=== PATIENT | female | born 1975 | race Caucasian/White ===

== ENCOUNTER 2023-01-02 22:20 | Emergency (ER) | payer OTHER, SELFPAY ==
[2023-01-02 22:26] VITALS: BP 179/109; PULSE 85; RESP 16; TEMP 36.8; O2SAT 98; BMI 48.2
--- NOTE | 2023-01-02 23:16 | ED_ITS ---
HPI - General Adult General Chief complaint: Extremity Problem, Nontraumatic Stated complaint: UPPER PAIN Time Seen by Provider: 01/02/23 22:28 Source: patient Mode of arrival: walk-in Limitations: no limitations History of Present Illness HPI narrative: This 47-year-old female who the history of hypertension, diabetes and is obese presents for evaluation of 3 weeks of left-sided scapular pain that radiates down into her shoulder and into her elbow. She has been seen by her family physician who put her on steroids for a period of time and also by the [place] emergency department who did an x-ray and put her on Naprosyn and a muscle relaxant. She denies any neck pain. She has no numbness or tingling. Pain is worse with movement. She states that her family physician thinks that it is musculoskeletal. There is no swelling or pain in the left upper extremity but the pain does radiate from the scapular region into the left elbow. She denies any chest pain or shortness of breath. She denies any dizziness or syncope. She has no abdominal pain or additional back pain. There is no lower extremity pain or swelling. She has no skin rash in this region. She did have some relief of her pain while she was on the steroids prescribed by her PCP but no relief with the naprosyn or flexeril Related Data Home Medications Medication Instructions Recorded Confirmed amlodipine 5 mg tablet 5 mg PO DAILY 01/02/23 01/02/23 cyclobenzaprine 10 mg tablet 10 mg PO Q12H 01/02/23 01/02/23 hydrochlorothiazide 25 mg tablet 25 mg PO DAILY 01/02/23 01/02/23 metformin 850 mg tablet 850 mg PO BID 01/02/23 01/02/23 naproxen 500 mg tablet 500 mg PO Q12H PRN pain 01/02/23 01/02/23 Allergies Allergy/AdvReac Type Severity Reaction Status Date / Time No Known Drug Allergies Allergy Verified 01/02/23 22:30 Review of Systems ROS Status of ROS 10 or more systems reviewed and unremarkable except as noted in history and below PFSH PFSH Social History Smoking status: Former smoker Exam Narrative Exam Narrative: Nurses note and vital signs reviewed and patient is not hypoxic. General: Overweight adult female lying comfortably on the stretcher, she winces in pain with movement, no respiratory distress Skin: Warm, dry, no pallor noted. There is no rash noted. Head: Normocephalic, atraumatic Eye: Normal conjunctiva, no drainage, EOMI. PERRL Ears, Nose, Mouth, and Throat: oral mucosa is moist. Nares patent. Cardiovascular: Regular Rate and Rhythm Respiratory: Patient is in no distress, no accessory muscle use, lungs are clear to auscultation, no wheezing, rales or rhonchi Back: Tenderness to palpation in the left trapezius muscle and scalene muscles, palpable muscle spasm appreciated, no skin rash or skin change noted. GI: Normal bowel sounds, no tenderness to palpation, no masses appreciated. No rebound, guarding, or rigidity noted. Musculoskeletal: Left upper posterior scapular area tenderness to palpation as described above. The left upper extremity is otherwise normal in appearance, full range of motion is appreciated, the patient appears to be more comfortable with her left arm over her head in an effort to stretch out the muscles in her shoulder. There is no midline bony vertebral cervical spine tenderness. There is no swelling tenderness or induration in the upper arm. Radial and brachial pulses are brisk and equal bilaterally. Material Checker strength is intact. Upper and lower extremity strength and sensation is intact and normal. Neurological: A&O x4, normal speech Psychiatric: Cooperative Constitutional Vital Signs, click to edit/add: Last Vital Signs Temp 98.3 F 01/02/23 22:26 Pulse 85 01/02/23 22:26 Resp 16 01/02/23 22:26 BP 150/100 H 01/03/23 01:36 Pulse Ox 98 01/02/23 22:26 O2 Del Method Room Air 01/02/23 22:26 Course Vital Signs Vital signs: Vital Signs Temperature 98.3 F 01/02/23 22:26 Pulse Rate 85 01/02/23 22:26 Respiratory Rate 16 01/02/23 22:26 Blood Pressure 179/109 H 01/02/23 22:26 Pulse Oximetry 98 01/02/23 22:26 Oxygen Delivery Method Room Air 01/02/23 22:26 Temperature 98.3 F 01/02/23 22:26 Pulse Rate 85 01/02/23 22:26 Respiratory Rate 16 01/02/23 22:26 Blood Pressure 150/100 H 01/03/23 01:36 Pulse Oximetry 98 01/02/23 22:26 Oxygen Delivery Method Room Air 01/02/23 22:26 Medical Decision Making MDM Narrative Medical decision making narrative: 47-year-old female presents for evaluation of 3 weeks of left posterior scapular area pain that radiates into the shoulder and down the right arm. She has been seen by her PCP and given a prescription for prednisone as he suspected it was musculoskeletal. She was also seen at [facility] and had an x-ray done and was placed on Naprosyn and Flexeril. She presents with intractable pain in this area. She has full range of motion and is keeping her left arm extended up over her head to stretch it out. She has some mild tenderness in the left posterior scapular region with no skin rash or other notable abnormality. I ordered routine labs to make sure this was not a complicated case including malignancy that may be eroding into her thoracic spine or scapula. She does have a mild elevation in her white count at 13.4. She has normal hemoglobin. Her electrolytes electrolytes were normal with the exception of a potassium. The potassium was placed orally in the emergency department. She is given 60 mg of IM Toradol because she is driving and a Percocet to take at home. She has a normal d-dimer. She has an elevated sedimentation rate and CRP. Noncontrast CT scan of thoracic spine with attention to the left scapula was ordered and is included in the body of this report. It shows some mild degenerative changes with a normal scapula and is otherwise basically normal. This was discussed with the patient verbalizes understanding. She was given a copy of the CT scan to share with her family physician. I did review her OARRS report which is negative for any activity. She was given an IM injection of solumedrol prior to discharge and a prescription for percocet to use. I suggested that she follow up closely with her PCP and possibly seek the attention of a chiropractor, as a manipulation may provede her with some relief. Medical Records Medical records narrative: The [address] [address] [address] Scan Report Signed Patient: PRAVEENA ALEXANDRA MR#: [id number] : 1975 Acct:[id number] Age/Sex: 47 / F ADM Date: 01/02/23 Loc: ER Attending Dr: Ordering Physician: Hanane Jones Date of Service: 01/03/23 Procedure(s): CT thoracic spine wo con Accession Number(s): [id number] cc: Physician,Non-Staff Vignesh~ The [address] [address] Patient Name: PRAVEENA ALEXANDRA MRN: [id number] date: 1975 Sex: F Assigned Patient Location: ER Current Patient Location: ER Accession/Order Number: [id number] Exam Date: 01/03/2023 00:39 Report Date: 01/03/2023 01:10 At the request of: HANANE MARKER Procedure: CT thoracic spine wo con EXAMINATION:CT thoracic spine wo con HISTORY:LUE and scapular pain x 3 weeks COMPARISON:None TECHNIQUE:Multiple thin section transaxial slices were acquired through the thoracic spine without contrast. Coronal and sagittal reconstruction images were reviewed. FINDINGS: There is normal alignment of the thoracic spine without spondylolisthesis. No acute compression fractures are noted. There is mild endplate degenerative disc disease throughout the thoracic spine. There is no bony canal stenosis. The visualized ribs are intact. There are mild dependent changes in the posterior medial lung bases. The paraspinal soft tissues are unremarkable. The visualized left scapula is grossly unremarkable. CT/CT thoracic spine wo con IMPRESSION: Very minimal endplate degenerative disc disease in the thoracic spine. Unremarkable CT scan otherwise. Electronically authenticated by: MADELINE CAST Date: 01/03/2023 01:10 Lab Data Labs: Lab Results 01/02/23 Range/Units 23:25 WBC 13.4 H (4.0-11.0) 10^3/uL RBC 5.23 (4.20-5.40) 10^6/uL Hgb 14.1 (12.0-16.0) g/dL Hct 44.9 (36.0-48.0) % MCV 85.9 (81.0-99.0) fL MCH 27.0 (26.7-34.0) pg MCHC 31.4 (29.9-35.2) g/dL RDW 13.2 (11.0-15.0) % Plt Count 266 (150-450) 10^3/uL MPV 10.5 (9.5-13.5) fL Neut % (Auto) 66.0 (43.0-75.0) % Lymph % (Auto) 25.3 (20.5-60.0) % [place] % (Auto) 5.7 (1.7-12.0) % Eos % (Auto) 1.9 (0.9-7.0) % Baso % (Auto) 0.4 (0.2-2.0) % Neut # (Auto) 8.9 H (1.4-6.5) 10^3/uL Lymph # (Auto) 3.4 (1.2-3.8) 10^3/uL [place] # (Auto) 0.8 (0.3-0.8) 10^3/uL Eos # (Auto) 0.3 (0.0-0.7) 10^3/uL Baso # (Auto) 0.1 (0.0-0.1) 10^3/uL Abs Immat Gran (auto) 0.10 H (0.00-0.03) 10^3/uL Imm/Tot Granulo (auto) 0.7 H (0.0-0.5) % ESR 32 H (<=20) mm/hr D-Dimer <0.19 (<=0.59) mg/L FEU Sodium 138 (136-145) mmol/L Potassium 2.8 L* (3.5-5.1) mmol/L Chloride 101 (98-107) mmol/L Carbon Dioxide 30.7 (21.0-32.0) mmol/L Anion Gap 9.1 BUN 19.0 H (7.0-18.0) mg/dL Creatinine 0.85 (0.55-1.02) mg/dL Est GFR ( Amer) >60 (>=60) Est GFR (Non-Af Amer) >60 (>=60) BUN/Creatinine Ratio 22.4 Glucose 131 H (74-106) mg/dL Calcium 8.8 (8.5-10.1) mg/dL Total Bilirubin 0.8 (0.2-1.0) mg/dL AST 15 (15-37) U/L ALT 20 (14-59) U/L Alkaline Phosphatase 76 (46-116) U/L C-Reactive Protein 2.6 H (<=1.0) mg/dL Total Protein 7.4 (6.4-8.2) g/dL Albumin 3.8 (3.4-5.0) g/dL Globulin 3.6 g/dL Albumin/Globulin Ratio 1.1 Discharge Plan Discharge Chief Complaint: Extremity Problem, Nontraumatic Clinical Impression: Pain of left scapula, Degenerative disc disease, thoracic, Radicular pain in left arm Patient Disposition: Home, Self-Care Time of Disposition Decision: 01:30 Condition: Good Prescriptions / Home Meds: No Action amlodipine 5 mg tablet 5 mg PO DAILY cyclobenzaprine 10 mg tablet 10 mg PO Q12H hydrochlorothiazide 25 mg tablet 25 mg PO DAILY metformin 850 mg tablet 850 mg PO BID naproxen 500 mg tablet 500 mg PO Q12H PRN (Reason: pain) Instructions: Degenerative Disc Disease (ED), Shoulder Pain (ED) Stand Alone Forms: Portal Instructions Referrals: Physician,Non-Staff, MD [Primary Care Provider] - 1 week
[2023-01-02 23:35] LABS: Basophils Absolute Auto 0.1 10^3/uL (0.0-0.1); Basophils Percent Auto 0.4 % (0.2-2.0); Eosinophils Absolute Auto 0.3 10^3/uL (0.0-0.7); Eosinophils Percent Auto 1.9 % (0.9-7.0); Hematocrit 44.9 % (36.0-48.0); Hemoglobin 14.1 g/dL (12.0-16.0); Immature Granulocytes Pct Auto 0.7 % (0.0-0.5); Lymphocytes Absolute Auto 3.4 10^3/uL (1.2-3.8); Lymphocytes Percent Auto 25.3 % (20.5-60.0); Mean Corpuscular HGB Conc 31.4 g/dL (29.9-35.2); Mean Corpuscular Volume 85.9 fL (81.0-99.0); Mean Platelet Volume 10.5 fL (9.5-13.5); Monocytes Absolute Auto 0.8 10^3/uL (0.3-0.8); Monocytes Percent Auto 5.7 % (1.7-12.0); Neutrophils Absolute Auto 8.9 10^3/uL (1.4-6.5); Platelet Count 266 10^3/uL (150-450); Red Blood Count 5.23 10^6/uL (4.20-5.40); Red Cell Distribution Width 13.2 % (11.0-15.0); White Blood Count 13.4 10^3/uL (4.0-11.0)
[2023-01-02 23:41] LABS: Erythrocyte Sedimentation Rate 32 mm/hr (<=20)
[2023-01-02 23:49] LABS: Alanine Aminotransferase 20 U/L (14-59); Albumin Globulin Ratio 1.1; Albumin Level 3.8 g/dL (3.4-5.0); Alkaline Phosphatase 76 U/L (46-116); Anion Gap 9.1; Aspartate Amino Transferase 15 U/L (15-37); BUN Creatinine Ratio 22.4; Bilirubin Total 0.8 mg/dL (0.2-1.0); C Reactive Protein 2.6 mg/dL (<=1.0); Calcium 8.8 mg/dL (8.5-10.1); Carbon Dioxide 30.7 mmol/L (21.0-32.0); Chloride 101 mmol/L (98-107); D Dimer <0.19 mg/L FEU (<=0.59); Estimated GFR (African America >60 (>=60); Estimated GFR (Non-African Ame >60 (>=60); Globulin 3.6 g/dL; Glucose 131 mg/dL (74-106); Sodium 138 mmol/L (136-145); Total Protein 7.4 g/dL (6.4-8.2)
[2023-01-02 23:50] LABS: Potassium 2.8 mmol/L (3.5-5.1)
--- NOTE | 2023-01-03 00:12 | CT_ITS ---
The [address] [address] Patient Name: PRAVEENA ALEXANDRA MRN: [id number] date: 1975 Sex: F Assigned Patient Location: ER Current Patient Location: ER Accession/Order Number: [id number] Exam Date: 01/03/2023 00:39 Report Date: 01/03/2023 01:10 At the request of: PAUL MARKER Procedure: CT thoracic spine wo con EXAMINATION:CT thoracic spine wo con HISTORY:LUE and scapular pain x 3 weeks COMPARISON:None TECHNIQUE:Multiple thin section transaxial slices were acquired through the thoracic spine without contrast. Coronal and sagittal reconstruction images were reviewed. FINDINGS: There is normal alignment of the thoracic spine without spondylolisthesis. No acute compression fractures are noted. There is mild endplate degenerative disc disease throughout the thoracic spine. There is no bony canal stenosis. The visualized ribs are intact. There are mild dependent changes in the posterior medial lung bases. The paraspinal soft tissues are unremarkable. The visualized left scapula is grossly unremarkable. CT/CT thoracic spine wo con IMPRESSION: Very minimal endplate degenerative disc disease in the thoracic spine. Unremarkable CT scan otherwise. Electronically authenticated by: MADELINE CAST Date: 01/03/2023 01:10
[2023-01-03] MEDS: KETOROLAC TROMETHAMINE 60 MG/2 ML VIAL IM (00:50)
[2023-01-03] MEDS: POTASSIUM CHLORIDE 10 MEQ ER TABLET 40 MEQ PO (00:51)
[2023-01-03 01:36] VITALS: BP 150/100
[2023-01-03] MEDS: HYDROCODONE/ACETAMINOPHEN 5-325 MG TABLET 1 TAB PO (01:54)
[2023-01-03] MEDS: ONDANSETRON 4 MG RAPDIS TABLET SL (01:55)
== END 2023-01-03 01:58 | disposition home or self-care (01) ==
PROVIDERS: Emergency Provider Emergency Medicine
DX: M51.14 Intervertebral disc disorders with radiculopathy, thoracic region (principal); M25.512 Pain in left shoulder; I10 Essential (primary) hypertension; E11.9 Type 2 diabetes mellitus without complications; E66.9 Obesity, unspecified; Z79.84 Long term (current) use of oral hypoglycemic drugs; Z79.899 Other long term (current) drug therapy; Z87.891 Personal history of nicotine dependence; Z68.42 Body mass index [BMI] 45.0-49.9, adult
CPT/HCPCS: 36415; 72128; 80053; 85025; 85378; 85652; 86140; 96372; 99285

== ENCOUNTER 2024-01-31 21:15 | Emergency (ER) | payer OTHER, SELFPAY | END 2024-01-31 21:27 | disposition left against medical advice (07) | PROVIDERS: Emergency Provider Internal Medicine | DX: Z53.21 Procedure and treatment not carried out due to patient leaving prior to being seen by health care provider (principal) ==

== ENCOUNTER 2024-02-19 11:34 | Emergency (ER) | payer OTHER, SELFPAY ==
[2024-02-19 11:46] VITALS: BP 184/88; PULSE 75; TEMP 36.7; O2SAT 97; BMI 49.6
[2024-02-19 13:14] LABS: Bilirubin Urine NEGATIVE (NEGATIVE); Blood Urine NEGATIVE (NEGATIVE); Clarity Urine CLEAR (CLEAR); Color Urine YELLOW (YELLOW); Glucose Urine UA NEGATIVE (NEGATIVE); Ketones Urine TRACE mg/dL (NEGATIVE); Leukocyte Esterase Urine NEGATIVE (NEGATIVE); Nitrite Urine NEGATIVE (NEGATIVE); Protein Urine TRACE mg/dL (NEG/TRACE); Specific Gravity Urine >=1.030 (1.005-1.025); Urobilinogen Urine 0.2 EU/dL (0.2-1.0); pH Urine 5.5 (5.0-9.0)
[2024-02-19 13:16] LABS: HCG Qualitative Urine* NEGATIVE (NEGATIVE); Internal Control Within Normal Limits
[2024-02-19 13:17] LABS: Urine Microscopic Indicated NO
--- NOTE | 2024-02-19 13:23 | ED.GENADUL1 ---
HPI HPI - General Adult General Chief complaint: Urogenital-Female Stated complaint: UTI COMPLAINTS Time Seen by Provider: 02/19/24 13:10 Source: patient Mode of arrival: walk-in History of Present Illness HPI narrative: Patient is a 48-year-old female presents to the emergency department for the evaluation of multiple complaints. She states she has had urinary frequency and pressure for the last several weeks. She has not had any fevers, vomiting. She reports mild pressure to the low abdomen. No vaginal bleeding or discharge. She has a history of frequent urinary tract infections and believes this feels similar. No concern for . No medications prior to arrival. She further complains of pain to the left mandible, tooth #16 that has been broken for several weeks. No drainage or swelling. She states she does have a doctor but it cost $100 to get into the office to be seen and she does not have it so she came to the ER. Related Data Home Medications ?Medication ?Instructions ?Recorded ?Confirmed amlodipine 5 mg tablet 5 mg PO DAILY 01/02/23 02/19/24 cyclobenzaprine 10 mg tablet 10 mg PO Q12H 01/02/23 01/02/23 hydrochlorothiazide 25 mg tablet 25 mg PO DAILY 01/02/23 02/19/24 metformin 850 mg tablet 850 mg PO BID 01/02/23 02/19/24 atorvastatin 10 mg tablet 10 mg PO DAILY 02/19/24 02/19/24 Previous Rx's ?Medication ?Instructions ?Recorded amoxicillin 875 mg-potassium 1 tab PO BID #14 tabs 02/19/24 clavulanate 125 mg tablet ibuprofen 600 mg tablet 600 mg PO QID PRN pain #20 tabs 02/19/24 phenazopyridine 200 mg tablet 200 mg PO Q8H 2 days #6 tabs 02/19/24 (Pyridium) Allergies Allergy/AdvReac Type Severity Reaction Status Date / Time No Known Drug Allergies Allergy Verified 01/02/23 22:30 Opioid HPI Opioid Management Most Recent Opioid Data: Last Pain Scale 10 01/03/23 00:50 Review of Systems ROS Constitutional Denies: fever or chills Ears, nose, mouth, and throat Reports: mouth pain; Denies: neck pain or swelling of lips/tongue Cardiovascular Denies: chest pain Respiratory Denies: shortness of breath or cough Gastrointestinal Denies: abdominal pain, nausea, vomiting or diarrhea Genitourinary Reports: urinary frequency, urinary urgency and pelvic pain Musculoskeletal Denies: back pain or neck pain Integumentary/Breast Denies: rash Neurological Denies: numbness in extremities or weakness in extremities Hematologic/Lymphatic Denies: easy bruising or easy bleeding PFSH [facility] Social History Smoking status: Former smoker Little interest or pleasure in doing things: not at all Feeling down, depressed, or hopeless: not at all Exam Narrative Exam Narrative: Gen.: Awake, alert, in no distress Head: Normocephalic, atraumatic ENT: Moist mucous membranes, tooth #16 is broken, root exposed with no abscess noted. No redness or swelling under the tongue. No facial swelling. Respiratory: No respiratory distress Gastrointestinal: Abdomen is soft, nondistended and nontender to palpation Back: No CVA tenderness Extremities: Moves extremities equally Psych: Normal mood and affect Neuro: No focal neuro deficit Skin: Warm, dry, intact Constitutional Vital Signs, click to edit/add: Last Vital Signs Temp 98.1 F 02/19/24 11:46 Pulse 86 02/19/24 13:38 Resp 18 02/19/24 13:38 BP 136/87 02/19/24 13:38 Pulse Ox 98 02/19/24 13:38 O2 Del Method Room Air 02/19/24 11:46 Course Vital Signs Vital signs: Vital Signs Temperature 98.1 F 02/19/24 11:46 Pulse Rate 75 02/19/24 11:46 Respiratory Rate 18 02/19/24 11:46 Blood Pressure 184/88 H 02/19/24 11:46 Pulse Oximetry 97 02/19/24 11:46 Oxygen Delivery Method Room Air 02/19/24 11:46 Temperature 98.1 F 02/19/24 11:46 Pulse Rate 86 02/19/24 13:38 Respiratory Rate 18 02/19/24 13:38 Blood Pressure 136/87 02/19/24 13:38 Pulse Oximetry 98 02/19/24 13:38 Oxygen Delivery Method Room Air 02/19/24 11:46 Medical Decision Making MDM Narrative Medical decision making narrative: Urine specimen with no evidence of UTI, however the patient does take diabetic medications and has had symptoms for 4 weeks, she is placed on Augmentin to cover her dental pain which will also cover cystitis. Pyridium given for symptoms with dental analgesia for pain. Follow-up with dental and PCP and return to the ER if symptoms change or worsen. Patient with a benign exam, no abdominal tenderness or flank tenderness. SUPERVISED APC VISIT, PHYSICIAN ATTESTATION: Based on the medical record the care appears appropriate. ? Medical Records Medical records reviewed: Yes I reviewed the patient's medical records Lab Data Lab results reviewed: Yes I reviewed the patient's lab results Labs: Lab Results 02/19/24 Range/Units 11:49 Urine Color Yellow (YELLOW) Urine Clarity Clear (CLEAR) Urine pH 5.5 (5.0-9.0) Ur Specific [place] >=1.030 A (1.005-1.025) Urine Protein Trace (NEG/TRACE) mg/dL Urine Glucose (UA) Negative (NEGATIVE) mg/dL Urine Ketones Trace A (NEGATIVE) mg/dL Urine Occult Blood Negative (NEGATIVE) Urine Nitrite Negative (NEGATIVE) Urine Bilirubin Negative (NEGATIVE) Urine Urobilinogen 0.2 (0.2-1.0) EU/dL Ur Leukocyte Esterase Negative (NEGATIVE) Urine HCG, Qual Negative (NEGATIVE) Discharge Plan Discharge Chief Complaint: Urogenital-Female Clinical Impression: Urinary frequency, Pain, dental Patient Disposition: Home, Self-Care Time of Disposition Decision: 13:21 Condition: Good Prescriptions / Home Meds: New phenazopyridine [Pyridium] 200 mg tablet 200 mg PO Q8H 2 Days Qty: 6 0RF ibuprofen 600 mg tablet 600 mg PO QID PRN (Reason: pain) Qty: 20 0RF amoxicillin-pot clavulanate 875-125 mg tablet 1 tab PO BID Qty: 14 0RF No Action amlodipine 5 mg tablet 5 mg PO DAILY cyclobenzaprine 10 mg tablet 10 mg PO Q12H hydrochlorothiazide 25 mg tablet 25 mg PO DAILY metformin 850 mg tablet 850 mg PO BID atorvastatin 10 mg tablet 10 mg PO DAILY Print Language: Citizen [place] Instructions: Toothache (ED), Urinary Urgency and Frequency (DC) Referrals: Physician,Non-Staff, MD [Primary Care Provider] - 1 week Discharge Date/Time: 02/19/24 13:39
[2024-02-19] MEDS: BENZOCAINE 30 ML, lidocaine HCL 15 ML MM (13:31)
[2024-02-19 13:38] VITALS: BP 136/87; PULSE 86; O2SAT 98
== END 2024-02-19 13:39 | disposition home or self-care (01) ==
PROVIDERS: Emergency Provider Emergency Medicine
DX: R35.0 Frequency of micturition (principal); K08.89 Other specified disorders of teeth and supporting structures; Z79.84 Long term (current) use of oral hypoglycemic drugs; Z87.440 Personal history of urinary (tract) infections
CPT/HCPCS: 81003; 84703; 99284

== ENCOUNTER 2024-10-10 16:01 | Emergency (ER) | payer SELFPAY ==
[2024-10-10 16:14] VITALS: BP 167/98; PULSE 86; TEMP 36.8; O2SAT 97; BMI 50.7
--- OUTSIDE RECORDS SUMMARY | 2024-10-10 16:24 | XMS_ITS | CCD ---
Author Organization [facility] Care Team Providers Care Branch Library Clerk Name Role Phone [facility] Attending Unavailable [facility] Consulting Unavailable [facility] Admitting Unavailable ECHO ACHARYA Attending Unavailab le JAMIE, ECHO Domínguez Referring Unavailab LANRE Vreas Attending Unavailable ACHARYA, ECHO Domínguez Referring Unavailab ARCELIA Peterson Attending Unavailable JAMIE, ECHO Domínguez Referring Unavailab ARCELIA Peterson Attending Unavailable JAMIE, ECHO Domínguez Referring Unavailab ARCELIA Peterson Attending Unavailable ACHARYAECHO ESPINO Referring Unavailab gloria Kaplan MD [facility] Primary Care Provider Medications Current Medications Medication Drug Class(es) Dates Sig (Normalized) Sig (Original) amLODIPine 5 mg oral tablet (8 sources) Dihydropyridine Calcium Channel Brett Start: 09-30-2024 take 1 tablet by mouth once daily amLODIPine (Norvasc) 5 MG tablet Indications: Essential hypertension (CMS/HCC) TAKE 1 TABLET BY MOUTH DAILY 90 tablet 09/30/2024 Active Start: 09-11-2024 End: 09-30-2024 take 1 tablet by mouth once daily amLODIPine (Norvasc) 5 MG tablet Indications: Essential hypertension (CMS/HCC) Take 1 tablet (5 mg) by mouth Daily 90 tablet 09/11/2024 09/30/2024 Discontinued atorvastatin 10 mg oral tablet (7 sources) HMG-CoA Reductase Inhibitor Start: 09-11-2024 take 1 tablet by mouth once daily atorvastatin (Lipitor) 10 MG tablet Indications: Mixed hyperlipidemia (CMS/HCC) Take 1 tablet (10 mg) by mouth Daily 90 tablet 09/11/2024 Active Start: 12-01-2023 End: 09-11-2024 take 1 tablet by mouth once daily atorvastatin (Lipitor) 10 MG tablet Indications: Mixed hyperlipidemia (CMS/HCC) Take 1 tablet (10 mg) by mouth Daily 90 tablet 3 12/01/2023 09/11/2024 Discontinued (Reorder) hydroCHLOROthiazide 25 mg oral tablet (8 sources) Thiazide Diuretic Start: 09-11-2024 take 1 tablet by mouth in the morning hydroCHLOROthiazide (HYDRODiuril) 25 MG tablet Indications: Essential hypertension (CMS/HCC) Take 1 tablet (25 mg) by mouth in the morning. 90 tablet 09/11/2024 Active Start: 06-24-2024 End: 09-11-2024 take 1 tablet by mouth in the morning hydroCHLOROthiazide (HYDRODiuril) 25 MG tablet Indications: Essential hypertension (CMS/HCC) TAKE 1 TABLET BY MOUTH IN THE MORNING 90 tablet 06/24/2024 09/11/2024 Discontinued (Reorder) Start: 03-11-2024 End: 03-11-2024 take 1 tablet by mouth in the morning hydroCHLOROthiazide (HYDRODiuril) 25 MG tablet Indications: Essential hypertension (CMS/HCC) Take 1 tablet (25 mg) by mouth in the morning. 90 tablet 03/11/2024 Active take 1 tablet by johan th in the morning hydroCHLOROthiazide (HYDRODiuril) 25 MG tablet Take 25 mg by mouth in the morning. Active metFORMIN hydrochloride 850 mg oral tablet (7 sources) Biguanide Start: 02-21-2024 End: 02-21-2024 take 1 tablet by mouth in the morning metFORMIN (Glucophage) 850 MG tablet Indications: Type 2 diabetes mellitus without complication, without long-term current use of insulin Take 1 tablet (850 mg) by mouth in the morning and 1 tablet (850 mg) in the evening. Take with meals. 180 tablet 3 02/21/2024 Active naproxen 375 mg oral tablet (6 sources) Nonsteroidal Anti-inflammatory Drug Start: 12-19-2022 take 1 tablet by mouth once daily in the morning, then take 1 tablet by mouth at mealtime naproxen (Naprosyn) 375 MG tablet TAKE 1 TABLET BY MOUTH EVERY MORNING AND 1 IN THE EVENING WITH MEALS FOR 7 DAYS 12/19/2022 Active omeprazole 10 mg delayed release oral capsule (6 sources) Proton Pump Inhibitor take 2 capsules by mouth every twenty-four hours as needed omeprazole (PriLOSEC) [address] capsule Take 20 mg by mouth Daily as needed Active Problems Active Problems Problem Classification Problem Date Documented Date Episodic/Chronic Diabetes mellitus without complication (7 sources) Diabetes mellitus; Translations: [Type 2 diabetes mellitus without complications] 11-12-2023 Chronic Disorders of lipid metabolism (7 sources) Hypertriglyceridemia; Translations: [Pure hyperglyceridemia] Onset: 11-12-2023 11-12-2023 Chronic Esophageal disorders (6 sources) Gastroesophageal reflux disease; Translations: [Gastro-esophageal reflux disease without esophagitis] Onset: 11-12-2023 11-12-2023 Chronic Essential hypertension (15 sources) Essential hypertension; Translations: [Essential (primary) hypertension] Onset: 02-05-2018 Resolved: 11-12-2023 11-12-2023 Chronic Immunizations and screening for infectious disease (4 sources) Contact with and (suspected) exposure to other viral communicable diseases; Translations: [CONTCT EXPS OTH VIRL COMMUNICABL DZ] Onset: 05-17-2020 Episodic Nutritional deficiencies (6 sources) Vitamin D deficiency; Translations: [Vitamin D deficiency, unspecified] Onset: 11-12-2023 11-12-2023 Chronic Osteoarthritis (6 sources) Arthritis; Translations: [Unspecified osteoarthritis, unspecified site] 11-12-2023 Chronic Other nutritional; endocrine; and metabolic disorders (6 sources) Obesity caused by energy imbalance; Translations: [Other obesity due to excess calories] Onset: 02-05-2018 11-12-2023 Chronic Spondylosis; intervertebral disc disorders; other back problems (6 sources) Cervical arthritis; Translations: [Spondylosis without myelopathy or radiculopathy, cervical region] Onset: 11-21-2023 11-21-2023 Chronic Past or Other Problems Problem Classification Problem Date Documented Da te Episodic/Chronic Spondylosis; intervertebral disc disorders; other back problems (6 sources) Neck pain; Translations: [Cervicalgia] Onset: 11-21-2023 11-21-2023 Episodic Results Test Name Value Interpretation Reference Range Facil ity XR CERVICAL SPINE AP/LAT/FLE X/EXTon 11-12-2023 XR CERVICAL SPINE AP/LAT/FLEX/EXT FINDINGS: Cervical vertebral bodies are preserved in height and are relatively normally aligned. Mild disc space loss with mild posterior and anterior osteophyte formation C5-6. Mild diffuse facet arthropathy. No fracture or focal soft tissue swelling is seen. Prevertebral soft tissues are normal. Flexion and extension maneuvers demonstrate normal alignment, no instability. IMPRESSION: 1. C5-6 arthritis, normal alignment 2. No instability TRANSCRIBED BY: ELECTRONICALLY SIGNED BY: Boni Guardado MD Normal Not Available [facility]on 04-28 Covid-19 PCR NOT DETECTED Normal NOT DETECTED [facility] Comment on above: Result Comment: This test is not yet approved or cleared by the [place] FDA. When there are no FDA-approved or cleared tests available, and other criteria are met, FDA can make tests available under an emergency access mechanism called an Emergency Use Authorization (EUA). The EUA for this test is supported by the [place] of Health and Human Service's (HHS's) declaration that circumstances exist to justify the emergency use of in vitro diagnostics for the detection and/or diagnosis of the virus that causes COVID-19. This EUA will remain in effect (meaning this test can be used) for the duration of the COVID-19 declaration justifying emergency of IVDs, unless it is terminated or revoked by FDA (after which the test may no longer be used). Performed By: #### C [facility] #### [facility] [address] [place] [address] Olivia Thomas EUA Statement SEE BELOW Normal [facility] Comment on above: Result Comment: This test is not yet approved or cleared by the [place] FDA. When there are no FDA-approved or cleared tests available, and other criteria are met, FDA can make tests available under an emergency access mechanism called an Emergency Use Authorization (EUA). The EUA for this test is supported by the [place] of Health and Human Service?s (HHS?s) declaration that circumstances exist to justify the emergency use of in vitro diagnostics for the detection and/or diagnosis of the virus that causes COVID-19. This EUA will remain in effect (meaning this test can be used) for the duration of the COVID-19 declaration justifying emergency of IVDs, unless it is terminated or revoked by FDA (after which the test may no longer be used). When diagnostic testing is negative, the possibility of a false negative should be considered in the context of a patients recent exposures and the presence of clinical signs and symptoms consistent with SARS-CoV-2. Performed By: #### C TB #### [facility] [address] [place], [place] [address] Olivia Thomas Encounters Encounter Date Encounter Type Care Provider Facility Start: 09-30-2024 End: 09-30-2024 Refill Ghazal Collins INFORMATION TECHNOLOGY AUDITOR Work Phone: [facility] Comment on above: Essential hypertensi on (CMS/HCC) Start: 09-11-2024 End: 09-11-2024 Refill Funmi Kaplan MD Work Phone: [facility] Comment on above: Essential hypertensi on (CMS/HCC); Mixed hyperlipidemia (CMS/HCC) Start: 03-11-2024 End: 03-11-2024 Telephone encounter Echo Acharya INFORMATION TECHNOLOGY AUDITOR Work Phone: [facility] Comment on above: Essential hypertensi on (CMS/HCC) (Primary Dx) Start: 02-21-2024 End: 02-21-2024 Orders Only Echo Acharya INFORMATION TECHNOLOGY AUDITOR Work Phone: [facility] Comment on above: Type 2 diabetes sandy itus without complication, without long- term current use of insulin (CMS/HCC) (Primary Dx) Start: 02-11-2024 End: 02-11-2024 Telephone encounter Funmi Kaplan MD Work Phone: [facility] Start: 12-10-2023 End: 12-10-2023 ambulatory ARCELIA BRINK Not Available Start: 12-03-2023 End: 12-03-2023 ambulatory ARCELIA BRINK Not Available Start: 11-23-2023 End: 11-23-2023 ambulatory ARCELIA BRINK Not Available Start: 11-21-2023 End: 11-22-2023 ambulatory LANRE SYED Not Available Start: 11-12-2023 End: 11-12-2023 ambulatory ECHO ACHARYA Not Available Start: 05-17-2020 End: 05-17-2020 Patient encounter procedure [facility] Facility:H1 Procedures Date Procedure Procedure Detail Performing Clinician Start: 08-12-2020 Mammography Funmi broussard MD Work Phone: Plan of Treatment Date Care Activity Detail Author Start: 09-12-2025 Glaucoma screening Diabetes: R etinopathy Screening [facility] Start: 01-26-2025 Influenza vaccination Influenz a Vaccine (Season Ended) [facility] Start: 11-11-2024 Urine screening for protein Diabetes: Urine Protein Screening [facility] Start: 02-12-2024 Hemoglobin A1c measurement Diabetes: Hemoglobin A1C [facility] Start: 01-27-2024 Influenza vaccination Influenza Vacc ine (#1) [facility] Start: 08-12-2021 Screening for malign ant neoplasm of breast Mammogram [facility] Start: 2005 Screening for malign ant neoplasm of cervix [facility] Start: 1996 Screening for malign ant neoplasm of cervix Pap Smear [facility] Start: 1994 Urine screening for protein Diabetes: Urine Protein Screening [facility] Start: 1975 Screening for malign ant neoplasm of colon [facility] Immunizations Immunization Date Immunization Notes Care Provider Fa [facility] 02-17-2017 influenza virus vacc ine, unspecified formulation Funmi Kaplan MD Work Phone: [facility] Payers Date Payer Category Payer Private Health Insurance CHRIST[employer]ICK [id number] 2023 Unknown [facility] [id number] 2023-Present [phone] [place] [id number] 2023 Unknown [id number] 1975 Unknown [id number] 1975 Unknown [id number] [id number] 1975 Unknown [id number] [id number] 1975 Unknown [id number] [id number] 1975 Unknown [id number] 2.9 1975 Unknown [id number] [id number] 1975 Unknown [id number] 1959 Self-pay [id number] Social History Date Type Detail Facility Start: 11-12-2023 Tobacco smoking stat [facility] Ex-smoker [facility] History of tobacco use Current smoker [facility] History of tobacco use Cigarette Smoker [facility] Start: 11-12-2023 Tobacco use and exposure Forme r smokeless tobacco user [facility] Start: 11-12-2023 Alcoholic beverage intake Curr ent drinker of alcohol (finding) [facility] Start: 11-12-2023 History of Social function [facility] Start: 11-12-2023 Tobacco use panel [facility] Start: 11-12-2023 Alcohol Comment once a week [facility] Start: 1975 Sex assigned at Not on file [facility] Clinical Notes 02-11-2024 to 09-11-2024 Telephone Encounter - Eileen Solomon - 09/11/2024 9:30 AM EDTTelephone Encounter - Eileen Solomon - 09/11/2024 9:30 AM Mauricio Acharya NP - 03/11/2024 2:19 PM EDT Note Date & Type Note Facility 09-11-2024 Telephone encount er Note Pt has not been seen since 11/12/2023 as a new patient, and has canceled all appointment since then. She states she has no insurance and cannot afford to come in for an appt. She wants this practice to discount her visits or work with her budget. [facility] 09-11-2024 Miscellaneous Notes Formattin g of this note might be different from the original. Pt has not been seen since 11/12/2023 as a new patient, and has canceled all appointment since then. She states she has no insurance and cannot afford to come in for an appt. She wants this practice to discount her visits or work with her budget. documented in this encounter [facility] 03-11-2024 History of Presen t illness Narrative Prescription sent documented in this encounter [facility] 03-11-2024 Telephone encount er Note Patient called lvm @ 1:52pm needing prescription order hydrochlorothiazide 25mg sent to [facility]. Pt has no refills left on medication. Thank you [facility] 03-11-2024 Miscellaneous Notes Formattin g of this note might be different from the original. Patient called lvm @ 1:52pm needing prescription order hydrochlorothiazide 25mg sent to [facility]. Pt has no refills left on medication. Thank you documented in this encounter [facility] 02-21-2024 History of Presen t illness Narrative Orders sent documented in this encounter [facility] 02-11-2024 Telephone encount er Note Patient called this morning with symptoms of UTI- frequency and pain x 2 weeks. She is self pay and wanted to know how much for office visit and testing. I spoke with Renetta who advised me office call would be around $135.00 plus urine dip - due today and culture testing to [facility] if indicated- this would be extra. Chanelle Pump could see today since Dr. Kaplan is full. I left voice message for patient. [facility] 02-11-2024 Miscellaneous Notes Formattin g of this note might be different from the original. Patient called this morning with symptoms of UTI- frequency and pain x 2 weeks. She is self pay and wanted to know how much for office visit and testing. I spoke with Renetta who advised me office call would be around $135.00 plus urine dip - due today and culture testing to [facility] if indicated- this would be extra. Chanelle Pump could see today since Dr. Kaplan is full. I left voice message for patient. documented in this encounter [facility] Evaluation note Diagnosis Essential hypertension (CMS/HCC)- Primary Unspecified essential hypertension [facility] Diagnosis Type 2 diabetes mellitus without complication, without long-term current use of insulin (CMS/HCC)- Primary [facility] Diagnosis Essential hypertension (CMS/HCC) Unspecified essential hypertension Mixed hyperlipidemia (CMS/HCC) Mixed hyperlipidemia [facility] Diagnosis Essential hypertension (CMS/HCC) Unspecified essential hypertension documented in this encounter [facility] Summary Purpose Family History No Family History Records FoundNo Family History Records Found Advance Directives No Advanced Directives Records FoundNo Advanced Directives Records Found Additional Source Comments INFORMATION SOURCE (unrecogn ized section and content) DATE CREATED AUTHOR 05/27/2020 [facility] DATE CREATED AUTHOR AUTHOR'S ORGANIZ ATION 12/10/2023 [facility] Care Teams (unrecognized sec tion and content) Branch Library Clerk Relationship Specialty Start Date End Date Funmi Kaplan MD [address] [place] [address] PCP - [facility] 11/26/23 Branch Library Clerk Relationship Specialty Start Date End Date Funmi Kaplan MD [address] [place] [address] PCP - [facility] 11/26/23 Branch Library Clerk Relationship Specialty Start Date End Date Funmi Kaplan MD [address] [place] [address] PCP - [facility] 11/26/23 Branch Library Clerk Relationship Specialty Start Date End Date Funmi Kaplan MD [address] [place] [address] PCP - [facility] 11/26/23 Branch Library Clerk Relationship Specialty Start Date End Date Funmi Kaplan MD [address] [place] [address] PCP - [facility] 11/26/23 Branch Library Clerk Relationship Specialty Start Date End Date Funmi Kaplan MD [address] [place] [address] PCP - [facility] 11/26/23 Reason for Visit (unrecogniz ed section and content) Reason Comments Med Refill FOR RECORDS PERTAINING TO PATIENTS WHO ARE OR HAVE BEEN ENROLLED IN A CHEMICAL DEPENDENCY/SUBSTANCEABUSE PROGRAM, SOME INFORMATION MAY BE OMITTED. This clinical summary was aggregated from multiple sources. Caution should be exercised in using it in the provision of clinical care. This summary normalizes information from multiple sources, and as a consequence, information in this document may materially change the coding, format and clinical context of patient data. In addition, data may be omitted in some cases. CLINICAL DECISIONS SHOULD BE BASED ON THE PRIMARY CLINICAL RECORDS. [facility]. provides no warranty or guarantee of the accuracy or completeness of information in this document.
--- NOTE | 2024-10-10 16:33 | ED_ITS ---
Documented by User: ROBERT Ngo 10/10/24 16:44 HPI HPI - General Adult General Chief complaint: Eye Problems Stated complaint: EYE MATTED, HURTING, Time Seen by Provider: 10/10/24 16:04 Source: patient Mode of arrival: walk-in Limitations: no limitations History of Present Illness HPI narrative: 49-year-old female presents to the ER with concerns of eye drainage and waking up with eyes matted. Symptoms started approximately 4 days ago. Patient wears glasses but does not wear contacts with any regularity. She states she recently drove her daughter down to [place], they were frying some chicken in the grease and burning from the cooking irritated her eyes. She used her daughter's friend's eyedrops unsure of the name or what they were which initially helped with some irritation. Patient then woke up with bilateral eye drainage she denies feeling matted. It improves throughout the day and she admits that the redness that she had around her eye has resolved. She then drove home and has been dealing with seasonal allergies mild congestion but no fever and notes that the eyes are still crusted in the morning. She denies any severe itching which she has had before with pinkeye. She denies any loss of vision she denies any eye pain and she denies any foreign body sensation or grinding that may have caused irritation to her eyes. Patient appears nontoxic in no acute distress. She sees eye care center and [place] Related Data Home Medications ?Medication ?Instructions ?Recorded ?Confirmed amlodipine 5 mg tablet 5 mg PO DAILY 01/02/2302/18 cyclobenzaprine 10 mg tablet 10 mg PO Q12H 01/02/23 hydrochlorothiazide 25 mg tablet 25 mg PO DAILY 02/19/24 metformin 850 mg tablet 850 mg PO BID 01/02/2302/18 atorvastatin 10 mg tablet 10 mg PO DAILY 02/19/2401/27 Previous Rx's ?Medication ?Instructions ?Recorded amoxicillin 875 mg-potassium 1 tab PO BID #14 tabs clavulanate 125 mg tablet ibuprofen 600 mg tablet 600 mg PO QID PRN pain #20 t abs 02/19/24 phenazopyridine 200 mg tablet 200 mg PO Q8H 2 days #6 tabs 02/19/24 (Pyridium) sulfacetamide sodium 10 % eye drops 2 drp ophthalmic ( eye) Q4H 7 days 10/10/24 #15 mL Allergies Allergy/AdvReac Type Severity Reaction Status Date / Time No Known Drug Allergies Allergy Verified 10/10/24 16:14 Opioid HPI Opioid Management Most Recent Opioid Data: Last Pain Scale 10 01/03/23, 00:50 Review of Systems ROS Constitutional Denies: fever or chills Eyes Reports: eye discharge and increased production of tears; Denies: change in vision, blurry vision, blind spots, light sensitivity, eye discomfort, floaters, seeing flashes or decreased night vision Ears, nose, mouth, and throat Denies: throat pain, neck pain, throat swelling or difficulty swallowing Cardiovascular Denies: chest pain or palpitations Respiratory Denies: shortness of breath or cough Gastrointestinal Denies: abdominal pain, nausea or vomiting Genitourinary Denies: painful urination or urinary frequency Integumentary/Breast Denies: rash Neurological Denies: headache, numbness in extremities or weakness in extremities Psychiatric Denies: anxiety PFSH PFS Social History Smoking status: Former smoker Little interest or pleasure in doing things: not at all Feeling down, depressed, or hopeless: not at all Exam Narrative Exam Narrative: Nurses's note reviewed and patient is not hypoxic. General: The patient appears well and in no apparent distress. Patient is resting comfortably on cart. Skin: Warm, dry, no pallor noted. Head: Normocephalic, atraumatic Neck: Supple, trachea mid-line, no tenderness, no lymphadenopathy Eye: Normal extraocular motion, pupils were equal round and reactive to light, the patient had no pain with extraocular motion. No conjunctival injection no excessive tearing at this time. Patient states when she awakes in the morning the eyes feel dry and matted shut there is no active discharge noted currently. Painless full extraocular motion noted no periorbital erythema and both eyelids were everted without evidence of foreign body or irritation. Ears, Nose, Mouth, and Throat: oral mucosa is moist Respiratory: Patient is in no distress Neurological: A&O x4, normal speech Psychiatric: Cooperative Constitutional Vital Signs, click to edit/add: Last Vital Signs Temp 98.3 F 10/10/24 16:14 Pulse 86 10/10/24 16:14 Resp 19 10/10/24 16:14 BP 167/98 H 10/10/24 16:14 Pulse Ox 97 10/10/24 16:14 O2 Del Method Room Air 10/10/24 16:14 Course Vital Signs Vital signs: Vital Signs Temperature 98.3 F 10/10/24 16:14 Pulse Rate 86 10/10/24 16:14 Respiratory Rate 19 10/10/24 16:14 Blood Pressure 167/98 H 10/10/24 16:14 Pulse Oximetry 97 10/10/24 16:14 Oxygen Delivery Method Room Air 10/10/24 16:14 Temperature 98.3 F 10/10/24 16:14 Pulse Rate 86 10/10/24 16:14 Respiratory Rate 19 10/10/24 16:14 Blood Pressure 167/98 H 10/10/24 16:14 Pulse Oximetry 97 10/10/24 16:14 Oxygen Delivery Method Room Air 10/10/24 16:14 Medical Decision Making [facility] Narrative Medical decision making narrative: Patient denies foreign body sensation in the eye denies eye pain notes that she has had some dried drainage on her eyelids in the morning. We discussed potential conjunctivitis, she has not worn her contacts recently and will not wear them until symptoms fully resolved. She has glasses at the bedside and her visual acuity is 10/15 bilaterally and individually in each eye. She has no loss of vision. I do not feel she warrants a fluorescein examination with discussion of symptoms and use of someone else's eyedrops in [place] and also driving a significant distance which may have dried her eyes out. She is agreeable to do an antibiotic drop as a precaution pending follow-up to her eye doctor and will try taking an [id number] allergy pill and potentially Naphcon-A as discussed at bedside. Patient will contact her security management specialist on Sunday to discuss follow-up. She may return to the ER if symptoms worsen or new symptoms develop Discharge Plan Discharge Chief Complaint: Eye Problems Clinical Impression: Conjunctivitis Patient Disposition: Home, Self-Care Time of Disposition Decision: 16:35 Condition: Good Prescriptions / Home Meds: New sulfacetamide sodium 10 % drops 2 drp ophthalmic (eye) Q4H 7 Days Qty: 15 0RF No Action amlodipine 5 mg tablet 5 mg PO DAILY cyclobenzaprine 10 mg tablet 10 mg PO Q12H hydrochlorothiazide 25 mg tablet 25 mg PO DAILY metformin 850 mg tablet 850 mg PO BID atorvastatin 10 mg tablet 10 mg PO DAILY phenazopyridine [Pyridium] 200 mg tablet 200 mg PO Q8H 2 Days Qty: 6 0RF ibuprofen 600 mg tablet 600 mg PO QID PRN (Reason: pain) Qty: 20 0RF amoxicillin-pot clavulanate 875-125 mg tablet 1 tab PO BID Qty: 14 0RF Print Language: Belizean Instructions: Conjunctivitis (ED) Additional Instructions: recommend appt with your Eye doctor in 3-5 days if not improving. return to ER fi symptom worsen Recommend Over the counter allergy medication and NAPHCON- A eye drops as directed Dr. Denver Barrios OD or staff: [phone] Documented by User: Umesh Rodriguez MD 10/10/24 16:48 HPI HPI - General Adult General Chief complaint: Eye Problems Stated complaint: EYE MATTED, HURTING, Time Seen by Provider: 10/10/24 16:04 Related Data Home Medications ?Medication ?Instructions ?Recorded ?Confirmed amlodipine 5 mg tablet 5 mg PO DAILY 01/02/2302/18 cyclobenzaprine 10 mg tablet 10 mg PO Q12H 01/02/23 hydrochlorothiazide 25 mg tablet 25 mg PO DAILY 02/19/24 metformin 850 mg tablet 850 mg PO BID 01/02/2302/18 atorvastatin 10 mg tablet 10 mg PO DAILY 02/19/2401/27 Previous Rx's ?Medication ?Instructions ?Recorded amoxicillin 875 mg-potassium 1 tab PO BID #14 tabs clavulanate 125 mg tablet ibuprofen 600 mg tablet 600 mg PO QID PRN pain #20 t abs 02/19/24 phenazopyridine 200 mg tablet 200 mg PO Q8H 2 days #6 tabs 02/19/24 (Pyridium) sulfacetamide sodium 10 % eye drops 2 drp ophthalmic ( eye) Q4H 7 days 10/10/24 #15 mL Allergies Allergy/AdvReac Type Severity Reaction Status Date / Time No Known Drug Allergies Allergy Verified 10/10/24 16:14 Opioid HPI Opioid Management Most Recent Opioid Data: Last Pain Scale 10 01/03/23, 00:50 PFSH PFSH Social History Smoking status: Former smoker Little interest or pleasure in doing things: not at all Feeling down, depressed, or hopeless: not at all Exam Constitutional Vital Signs, click to edit/add: Last Vital Signs Temp 98.3 F 10/10/24 16:14 Pulse 86 10/10/24 16:14 Resp 19 10/10/24 16:14 BP 167/98 H 10/10/24 16:14 Pulse Ox 97 10/10/24 16:14 O2 Del Method Room Air 10/10/24 16:14 Course Vital Signs Vital signs: Vital Signs Temperature 98.3 F 10/10/24 16:14 Pulse Rate 86 10/10/24 16:14 Respiratory Rate 19 10/10/24 16:14 Blood Pressure 167/98 H 10/10/24 16:14 Pulse Oximetry 97 10/10/24 16:14 Oxygen Delivery Method Room Air 10/10/24 16:14 Temperature 98.3 F 10/10/24 16:14 Pulse Rate 86 10/10/24 16:14 Respiratory Rate 19 10/10/24 16:14 Blood Pressure 167/98 H 10/10/24 16:14 Pulse Oximetry 97 10/10/24 16:14 Oxygen Delivery Method Room Air 10/10/24 16:14 Medical Decision Making MDM Narrative Medical decision making narrative: Patient denies foreign body sensation in the eye denies eye pain notes that she has had some dried drainage on her eyelids in the morning. We discussed potential conjunctivitis, she has not worn her contacts recently and will not wear them until symptoms fully resolved. She has glasses at the bedside and her visual acuity is 10/15 bilaterally and individually in each eye. She has no loss of vision. I do not feel she warrants a fluorescein examination with discussion of symptoms and use of someone else's eyedrops in [place] and also driving a significant distance which may have dried her eyes out. She is agreeable to do an antibiotic drop as a precaution pending follow-up to her eye doctor and will try taking an qmmm-pnw-[id number] allergy pill and potentially Naphcon-A as discussed at bedside. Patient will contact her security management specialist on Sunday to discuss follow-up. She may return to the ER if symptoms worsen or new symptoms develop I, Dr Rodriguez, have reviewed the above progress note and course of action in the ER; agree with the above. I have personally gone over history and physical, and discussed disposition and treatment plan with the PA.. Discharge Plan Discharge Chief Complaint: Eye Problems Clinical Impression: Conjunctivitis Patient Disposition: Home, Self-Care Time of Disposition Decision: 16:35 Condition: Good Prescriptions / Home Meds: New sulfacetamide sodium 10 % drops 2 drp ophthalmic (eye) Q4H 7 Days Qty: 15 0RF No Action amlodipine 5 mg tablet 5 mg PO DAILY cyclobenzaprine 10 mg tablet 10 mg PO Q12H hydrochlorothiazide 25 mg tablet 25 mg PO DAILY metformin 850 mg tablet 850 mg PO BID atorvastatin 10 mg tablet 10 mg PO DAILY phenazopyridine [Pyridium] 200 mg tablet 200 mg PO Q8H 2 Days Qty: 6 0RF ibuprofen 600 mg tablet 600 mg PO QID PRN (Reason: pain) Qty: 20 0RF amoxicillin-pot clavulanate 875-125 mg tablet 1 tab PO BID Qty: 14 0RF Print Language: Belizean Instructions: Conjunctivitis (ED) Additional Instructions: recommend appt with your Eye doctor in 3-5 days if not improving. return to ER fi symptom worsen Recommend Over the counter allergy medication and NAPHCON- A eye drops as directed Dr. Denver Barrios OD or staff: [phone]
--- NOTE | 2024-10-10 16:36 | PC.NURSE ---
Visual acuity with glasses as follows: Bilateral: 10/15, Right: 10/15, Left: 10/15.
[2024-10-10] MEDS: SULFACETAMIDE SODIUM 10% OP 300 DROP/15 ML BOTTLE OP (16:49)
== END 2024-10-10 16:55 | disposition home or self-care (01) ==
PROVIDERS: Emergency Provider Emergency Medicine; PCP Pediatrics
DX: H10.9 Unspecified conjunctivitis (principal); Z87.891 Personal history of nicotine dependence
CPT/HCPCS: 99284

== ENCOUNTER 2025-04-01 11:00 | Outpatient (OUT) | payer MEDICAID, SELFPAY ==
--- OUTSIDE RECORDS SUMMARY | 2021-01-24 07:18 | XMS_ITS | Continuity of Care Document ---
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 [address] [place], [place], [address] [place] [address] , [place]. [phone] Formerly [facility] , [address] [place], [place], [address] [place] [address], tel:[phone] [facility] Dept Immunization No Information 1 Mike Garcia. [address] [place], [place], [id number] , [place]. tel:[phone] Formerly [facility] , [address] [place], [place], [id number], [place] tel:[phone] [facility] Dept Immunization No Information 1 Mike Garcia. [address] [place], [place], [id number] , [place]. tel:[phone] Formerly [facility] , [address] [place], [place], [address] [place] [address], [place] tel:[phone] [facility] Dept Immunization No Information Mike Garcia. [address], [place], [place], [id number] , . tel:[phone] Family History Family Member Type Diagnosis Age At Onset No Information Immunizations Vaccine Date Status Comments COVID-19, mRNA, LNP-S, PF, 3 0 mcg/0.3 mL dose administered Note: TPV40 ; Source : Other Registry Pfizer BioNTBeryl [employer] administered Note: TPV40 ; Source: New Immunization Record influenza, injectable, quadrivalent, preservative free administered Source: Other [place] calix Influenza, seasonal, injectable, preservative free administered Source: Ot her Registry Tdap administered Source: Other R egistry Payers Payer name Insurance type Covered alliance party ID Authoriza tion(s) No Information Social History Type Description Quantity Date Captured Comments Sex Female Smoking Status No Information Chief Complaint And Reason For Visit No Information Reason For Referral Reason For Referral No Information History Of Present Illness Encounter Date Complaint History Of Prese nt Illness No Information Functional Status Date Functional Assessmen t No Information Instructions Date Instruction Additional Infor mation No Information Assessments Type Assessment Date No Information Patient Care Teams Name Effective Dates (start - stop) Status Members No Information
--- OUTSIDE RECORDS SUMMARY | 2025-01-19 10:45 | XMS_ITS ---
Author Organization [facility] vice Address [address] [place] [address] [phone] Care Team Providers Care Aircraft Engineer Name Role Phone Fiona Hwang Primary Care Provider Fay Whyte Unavailable [phone] REASON FOR VISIT Wellness Social History Sex Assigned At : Social History Observation Description Sex Assigned At Female Encounters Encounter Location Date Provider Diagnosis [address] [phone] 01/19/2025 Fay Whyte Plan Of Treatment Next Appt Details Provider Name:Sofiya dickerson, 04/22/2025 10:15:00 AM, [address] [place] [address], [id number], Provider Name:Fay dickerson, 05/25/2025 01:15:00 PM, [address] [place] [address], [id number], Provider Name:Sofiya dickerson, 06/01/2025 01:45:00 PM, [address] [place] [address], [id number], Progress Notes * Betina RAMESHDOB: 6 (49 yo F)Acc No.[id number]:01/19/2025 Patient:Betina SUAZO :?Fay Whyte APRN, CONSTRUCTION SALES MANAGER-CDOB:1975???Age: 49 Y???Sex:FemaleDate:01/19/2025Phone:[phone]:[address] [facility] [address], [facility]Igq:Fiona Hwang Subjective: * Chief Complaints: * 1 . Wellness. * Medical History: Objective: * Vitals: Assessment: Plan: * Treatment: * Billing Information: * Visit Code: * Procedure Codes: * Electronic signature of MICHELA Shea on 04/02/2025 at 12:37 PM EST Sign off status: Pending * Provider: Catrachita Whyte APRN, FNP-C Date: 0 01/19/2025 Generated for Printing/Faxing/eTransmitting on:?04/02/2025 12:37 PM EST
--- OUTSIDE RECORDS SUMMARY | 2025-02-02 07:45 | XMS_ITS ---
Author Organization [facility] vices Address [address] [place] [address] [id number] Care Team Providers Care Tape Transferrer Name Role Phone Fiona Hwang Primary Care Provider [phone] Fay Whyte Unavailable [phone] REASON FOR VISIT 2w htn, labs Social History Sex Assigned At : Social History Observation Description Sex Assigned At Female Encounters Encounter Location Date Provider Diagnosis [address] [phone] 02/02/2025 Fay Whyte Plan Of Treatment Next Appt Details Provider Name:Sofiya dickerson, 04/22/2025 10:15:00 AM, [address] [place] [address], [phone], Provider Name:Fay dickerson, 05/25/2025 01:15:00 PM, [address] [place] [address], [phone], Provider Name:Sofiya dickerson, 06/01/2025 01:45:00 PM, [address] [place] [address], [id number], Progress Notes * Betina RAMESHDOB: [birth year] (49 yo F)Acc No.[id number]:02/02/2025 Medical Note Patient: Betina LAL :?Fay Whyte APRN, HAND CANDLE DIPPER-CDOB:1975???Age: 49 Y???Sex:FemaleDate:02/02/2025Phone:[phone]:[address] [facility] [address], [place], [facility]Zmz:Fiona Hwang Subjective: * Chief Complaints: * 1 . 2w htn, labs. * Medical History: Objective: * Vitals: Assessment: Plan: * Treatment: * Billing Information: * Visit Code: * Procedure Codes: * Electronic signature of MICHELA Shea on 04/02/2025 at 12:37 PM EST Sign off status: Pending * Provider: Catrachita Whyte APRN, FNP-C Date: 0 02/02/2025 Generated for Printing/Faxing/eTransmitting on:?04/02/2025 12:37 PM EST
--- OUTSIDE RECORDS SUMMARY | 2025-02-24 08:30 | XMS_ITS ---
Author Organization [facility] vice Address [address] [place] [address] [phone] Care Team Providers Care Quarter Supervisor Name Role Phone Fiona Hwang Primary Care Provider Fay Whyte Unavailable [phone] Sofiya Doan Unavailable [phone] REASON FOR VISIT Wellness Social History Sex Assigned At : Social History Observation Description Sex Assigned At Female Encounters Encounter Location Date Provider Diagnosis [address] [phone] 02/24/2025 Sofiya Doan Plan Of Treatment Next Appt Details Provider Name:Sofiya dickerson, 04/22/2025 10:15:00 AM, [address] [place] [address], [phone], Provider Name:Fay dickerson, 05/25/2025 01:15:00 PM, [address] [place] [address], [phone], Provider Name:Sofiya dickerson, 06/01/2025 01:45:00 PM, [address] [place] [address], [id number], Progress Notes * Betina RAMESHDOB: 6 (49 yo F)Acc No.[id number]:02/24/2025 Medical Note Patient: Betina LAL :?SOFIYA DOAN-CNPDOB:1975???Age:49 Y ???Sex:FemaleDate:02/24/2025Phone:[phone]:[address] [facility], [address] [facility]Xec:Fiona Hwang Subjective: * Chief Complaints: * 1 . Wellness. * Medical History: Objective: * Vitals: Assessment: Plan: * Treatment: * Billing Information: * Visit Code: * Procedure Codes: * Electronic signature of JOHN Villafana on 04/02/2025 at 12:38 PM ESTSign off status: Pending * Provider: Radha DOAN-CURLY Date: 0 02/24/2025 Generated for Printing/Faxing/eTransmitting on:?04/02/2025 12:38 PM EST
--- OUTSIDE RECORDS SUMMARY | 2025-03-02 09:45 | XMS_ITS ---
Author Organization [facility] vice Address [address] [place] [address] [phone] Care Team Providers Care Rounder Hand Name Role Phone Fiona Hwang Primary Care Provider Fay Whyte Unavailable [phone] REASON FOR VISIT sleep apnea Social History Sex Assigned At : Social History Observation Description Sex Assigned At Female Encounters Encounter Location Date Provider Diagnosis [address] [phone] 03/02/2025 Fay Whyte Plan Of Treatment Next Appt Details Provider Name:Sofiya dickerson, 04/22/2025 10:15:00 AM, [address] [place] [address], [phone], Provider Name:Fay dickerson, 05/25/2025 01:15:00 PM, [address] [place] [address], [phone], Provider Name:Sofiya dickerson, 06/01/2025 01:45:00 PM, [address] [place] [address], [phone], Progress Notes * Betina RAMESHDOB: [birth year] (49 yo F)Acc No.[id number]:03/02/2025 Medical Note Patient: Betina LAL :?Fay Whyte APRN, KNITTING TEACHER-CDOB:1975???Age: 49 Y???Sex:FemaleDate:03/02/2025Phone:[phone]:[address] [facility], [address], [facility]Ois:Fiona Hwang Subjective: * Chief Complaints: * 1 . Sleep apnea. * Medical History: Objective: * Vitals: Assessment: Plan: * Treatment: * Billing Information: * Visit Code: * Procedure Codes: * Electronic signature of MICHELA Shea on 04/02/2025 at 12:38 PM EST Sign off status: Pending * Provider: Catrachita Whyte APRN, FNP-C Date: Generated for Printing/Faxing/eTransmitting on:?04/02/2025 12:38 PM EST
--- OUTSIDE RECORDS SUMMARY | 2025-04-02 12:38 | XMS_ITS | Clinical Summary ---
Author Organization [facility] Healthcare Address [address] [place] [address] Care Team Providers Care Measurement And Verification Engineer Name Role Phone Funmi Kaplan MD Primary Care Provider [phone] Allergies No known active allergies Medications MedicationSigDispense QuantityRefillsLast FilledStart DateEnd DateStatus naproxen (Naprosyn) 375 MG tablet TAKE 1 TABLET BY MOUTH EVERY MORNING AND 1 IN THE EVENING WITH MEALS FOR 7 DAYS 3Active omeprazole (PriLOSEC) [address] capsule Take 20 mg by mouth Daily as neededActive metFORMIN (Glucophage) 850 MG tablet Indications:Type 2 diabetes mellitus without complication, without long-term current use of insulin (HCC)Take 1 tablet (850 mg) by mouth in the morning and 1 tablet (850 mg) in the evening. Take with meals. 180 tablet 4Active hydroCHLOROthiazide (HYDRODiuril) 25 MG tablet Indications:Essential hypertensionTake 1 tablet (25 mg) by mouth in the morning. 90 tablet 5Active atorvastatin (Lipitor) 10 MG tablet Indications:Mixed hyperlipidemiaTake 1 tablet (10 mg) by mouth Daily 90 tablet 5Active amLODIPine (Norvasc) 5 MG tablet Indications:Essential hypertensionTAKE 1 TABLET BY MOUTH DAILY 90 tablet 5Active Active Problems ProblemNoted DateDiagnosed DateCervical dhepyuirm77/26/2024ervical pain 11/21/2023GERD (gastroesophageal reflux disease)11/12/2023Hypertriglyceridemia 11/12/2023Vitamin D gaessnsezk32/17/2024Obesity due to excess xyfqedgk13/11/2018 Essential reasbkzxnvsn22/11/2018 Overview (11/12/2023): Takes medications prescribed per Katt Angel or Dr. Joseph ArthritisDM (diabetes mellitus) Resolved Problems ProblemNoted DateDiagnosed DateResolved OjdeZbfahgrjenbl52/17/2024 Social History Tobacco UseTypesPacks/DayYears UsedDateSmoking Tobacco: FormerCigarettes Smokeless Tobacco: Former Tobacco Cessation:Counseling Given: Not Answered Alcohol UseStandard Drinks/WeekCommentsYes0 (1 standard drink = 0.6 oz pure alcohol)once a weekCommentsUnknownSex and Gender InformationValueDate RecordedSex Assigned at BirthNot on fileLegal LxuSimqat14/09/2024 12:01 PM EDT Gender IdentityNot on fileSexual OrientationNot on file Last Filed Vital Signs Vital SignReadingTime TakenCommentsBlood Fwtatalu706/7411/12/2023 1:06 PM EDT Pulse--Qzqzpcvcsjl00.2 ??C (97.1 ??F)11/12/2023 1:06 PM EDTRespiratory Rate-- Oxygen Saturation--Inhaled Oxygen Concentration--Witvwl185 kg (282 lb)11/12/2023 1:06 PM PNBNvdpep341.3 cm (5' 3.5 )11/12/2023 1:06 PM EDTBody Mass Index49.17 11/12/2023 1:06 PM EDT Plan of Treatment Health MaintenanceDue DateLast DoneCommentsCT Irejnjrqwhal48/11/1976Colonoscopy 1975Colorectal Cancer Saznurfea08/11/1976FIT-DNA1975FIT1975 FOBT1975 9822Qbclojjowvoxd34/11/1976Diabetes: Urine Protein Kknuidvmd48/11/1995 Pneumococcal Vaccine: Pediatrics (0 to 5 Years) and At-Risk Patients (6 to 64 Years) (1 of 2 - PCV)1994Pap Smear1996Cervical Cancer Screening 2005HPV/Iphmck4306/07/20058169Wmgtsoeoa40/18/202203/, 04/30/2019COVID-19 Vaccine ( season)/, 12/24/2020Influenza Vaccine (#1), 03/21/2016Diabetes: Hemoglobin A1C04/22/2025 01/20/2025, 4Diabetes: Retinopathy Cuxbzejfr18/18/75391309/13/2023 Procedures Procedure NamePriorityDate/TimeAssociated DiagnosisCommentsHEMOGLOBIN A9GZajnkja 11/12/2023 1:42 PM EDT Encounter for wellness examination Type 2 diabetes mellitus without complication, without long-term current use of insulin ([facility]) DIABETIC RETINOPATHY SCREENING - OU - BOTH JWYYVdbuhfj74/18/2024 3:49 PM EDTfrom Last 3 Months or Most Recently Relevant to Health Maintenance Results * Diabetic Retinopathy Screening - OU - Both Eyes (09/13/2023 3:49 PM EDT) Anatomical RegionLateralityModalityHeadOther Narrative Authorizing ProviderResult TypeResult StatusJennhernando Kaplan MDOPHTH PHOTOGRAPHY Final Result from Last 3 Months or Most Recently Relevant to Health Maintenance Care Teams Team MemberRelationshipSpecialtyStart DateEnd Date Funmi Kaplan MD [address] [place] [address] PCP - GeneralFamily Medicine11/26/23
--- OUTSIDE RECORDS SUMMARY | 2025-04-02 12:38 | XMS_ITS | Clinical Summary ---
Author Organization [facility] Address [address], [address] [place] [address] Care Team Providers Care Rag Sorter Name Role Phone Unavailable Primary Care Provider Unavailabl e Allergies No known active allergies Medications MedicationSigDispense QuantityRefillsLast FilledStart DateEnd DateStatus desoximetasone (TOPICORT) 0.25 % cream Indications:Contact dermatitisApply topically 2 times daily. 30 g ctive LOESTRIN 24 FE 1-20 MG-MCG TABS TAKE 1 TABLET BY MOUTH EVERY DAY 28 tablet ctive permethrin (ELIMITE) 5 % cream Apply topically as directed 60 g ctive amLODIPine (NORVASC) 5 MG tablet TAKE 1 TABLET BY MOUTH EVERY DAY 30 tablet ctive LOESTRIN 24 FE 1-20 MG-MCG TABS TAKE 1 TABLET BY MOUTH DAILY 28 tablet ctive ibuprofen (ADVIL;MOTRIN) 800 MG tablet Take 1 tablet by mouth every 8 hours as needed for Pain. With meals 30 tablet ctive omeprazole (PRILOSEC) 20 MG capsule Take 1 capsule by mouth Daily. 30 capsule ctive losartan-hydrochlorothiazide (HYZAAR) 100-12.5 MG per tablet TAKE 1 TABLET BY MOUTH EVERY DAY 30 tablet ctive Active Problems ProblemNoted DateDiagnosed DateHypertriglyceridemiaHeadache Overview (03/26/2011): migraine ObesityHypertensionVitamin D deficiencyGERD (gastroesophageal reflux disease) Family History Medical HistoryRelationNameCommentsCOPDOtherCancerOtherDiabetesOtherHeart DiseaseOtherHigh Blood PressureOtherVision LossOtherRelationNameStatusComments Other Social History Tobacco UseTypesPacks/DayYears UsedDateSmoking Tobacco: FormerCigarettes 06/27/1996 - 06/27/2009Smokeless Tobacco: NeverAlcohol UseStandard Drinks/Week CommentsYes0 (1 standard drink = 0.6 oz pure alcohol)rarelyCommentsNoSex and Gender InformationValueDate RecordedSex Assigned at BirthNot on fileLegal HkiShbcdg83/10/2013 11:03 AM ESTGender IdentityNot on fileSexual OrientationNot on file Last Filed Vital Signs Vital SignReadingTime TakenCommentsBlood Mrkpftio631/7406/20/2012 11:14 AM EST Nytax618206/20/2012 11:14 AM LBHYjrvkhdkqqa30.2 ??C (97.1 ??F)06/20/2012 11:14 AM ESTRespiratory Jrmq378006/20/2012 11:14 AM ESTOxygen Saturation--Inhaled Oxygen Concentration--Vlvlkq965.6 kg (299 lb)06/20/2012 11:14 AM MFYJcijdo924.5 cm (5' 2 )06/20/2012 11:14 AM ESTBody Mass Index54.69006/20/2012 11:14 AM EST Plan of Treatment Not on file
--- OUTSIDE RECORDS SUMMARY | 2025-04-02 12:38 | XMS_ITS | Patient Health Record ---
Author Organization [facility] vices Address [address], [place] [id number] Care Team Providers Care Lidar Scientist Name Role Phone Fiona Hwang Primary Care Provider [phone] Fay Whyte Unavailable [phone] Sofiya Doan Unavailable [phone] Sofiya Jacobson Unavailable [phone] Allergies No Known Allergies Results Component Value Reference Range Notes COMPREHENSIVE METABOLIC PANE L Reviewed date:01/21/2025 08:20:45 AM Interpretation: Performing Lab: Notes/Report: PERFORMED AT [facility] [address],[place] [address] EGFR not calculated due to patient's gender not being defined. not use a race coefficient. CKD-EPI 2020 equation that does Reported eGFR is based on the SODIUM 143 134-146 mmol/L POTASSIUM4.03.5-5.0 mmol/DRLFXYRAV91715-302 mmol/LCARBON GIFJLKX4568-88 mmol/L ANION TKV22-40 mmol/LBLOOD UREA ZKDNHYCQ839-99 mg/dLCREATININE0.670.40-1.00 mg/dLMETHOD TRACEABLE TO IDMS YZWYEKDBCCRGBEO55804-38 mg/dLCALCIUM9.08.5-10.5 mg/dLTOTAL PROTEIN7.06.0-8.0 g/dLALBUMIN4.03.2-5.3 g/dLALKALINE HGNGWSHJNTE7806- 130 U/LAST27<=41 U/LBILIRUBIN,TOTAL0.80.3-1.2 mg/dLALT12<=31 U/LEGFR (CKD-EPI) NON-RACE DEPENDENT>90>=60 ml/min/1.73sq.mHEMOGLOBIN A1C (GLYCO-HGB) Reviewed date:01/21/2025 08:38:32 AM Interpretation: Performing Lab: Notes/Report:HEMOGLOBIN A1C7.14.4-5.6 % ADA Guidelines Result HgbA1c Normal : less than 5.7 % Prediabetes : 5.7 % to 6.4 % Diabetes : > 6.4 % Use with caution in patients with abnormal hemoglobin variants as the half-life of red blood cells and in vivo glycation rates are affected. EST. AVERAGE XNYAUMW799 PERFORMED AT [address] [address] LIPID PROFILE Reviewed date:01/21/2025 08:37:25 AM Interpretation: Performing Lab: Notes/Report:WYMANTQOKJG522920-293 mg/kLZXFWEPGYPLVF68083-354 mg/dLHDL PHYWJEHCTZF21>39 mg/dL HDL <40 mg/dL - High Risk HDL > or = 40mg/dL- Desirable HDL >60 mg/dL - Negative Risk LDL (CALC)77<130 mg/dL LDL <100 mg/dL - Desirable LDL >160 mg/dL - High Risk CHOLESTEROL:HDL3.81.0-5.0 NAVERY LOW FSNBSDLULIX816-08 mg/dL PERFORMED AT [address] [address] CBC AND AUTOMATED DIFFERENTIAL Reviewed date:01/21/2025 08:20:37 AM Interpretation: Performing Lab: Notes/Report:WBC7.44-11 x10E9/LRBC COUNT4.493.8-5.2 X10E12/JDXWWLCOWFI69.511.7- 15.5 g/uHHKKOAWGUAD38.835-47 %VUM6840-187 fLMCH27.827-34 lkLAEE97.032-36 g/dLRDW 14.111.5-15 %PLATELET CLLMQ039908-450 X10E9/LMPV9.37-12 fLEOSINOPHILS RELATIVE PERCENT BY AUTOMATED COUNT4.7BASOPHILS RELATIVE PERCENT BY AUTOMATED COUNT0.8 NEUTROPHILS ABSOLUTE COUNT BY AUTOMATED COUNT4.81.5-6.6 10*3/uLLYMPHOCYTES ABSOLUTE COUNT (10*3/UL) BY AUTOMATED COUNT1.71.0-3.5 10*3/uLMONOCYTES ABSOLUTE COUNT (10*3/UL) BY AUTOMATED COUNT0.50.0-0.9 10*3/uLEOSINOPHILS ABSOLUTE COUNT (10*3/UL) BY AUTOMATED COUNT0.40.0-0.4 10*3/uLCELLAVISION DIFFERENTIAL TYPE AUTOMATED DIFFERENTIAL PERFORMED AT [facility] [address],[place] [address] NEUTROPHILS RELATIVE PERCENT BY AUTOMATED COUNT65.0LYMPHOCYTES RELATIVE PERCENT BY AUTOMATED COUNT23.0MONOCYTES RELATIVE PERCENT BY AUTOMATED COUNT6.5BASOPHILS ABSOLUTE COUNT (10*3/UL) BY AUTOMATED COUNT0.10.0-0.2 10*3/uL Reason For Referral Reason need for sleep study . May be at home or in house Diagnosis 1 Sleep apnea-like beh avior (G47.39) Referral Organization [facility] Referring Provider First Name Fay Referring Provider Last Name Isabell Referring Provider Speciality Family [facility] Referred Provider [facility] Referred Provider Specialty Sleep Medici ne General Notes Burton Ewing 02/25 04:40:49 PM >1st attempt faxed to office for appt date. [facility] Referral Priority Routine Referral Appointment Date 03/17/2025 Medications Medication SIG (Take, Route, Frequency, Duration) Notes Start Date End Date Status Magnesium 250 MG 1 tablet with a meal Orally Onc e a day ActivePotassium 99 MG1 tablet Orally Once a dayActiveGlucometerdaily SQ daily; Duration: 90 daysActiveBlood Gluc Meter Disp-Strips -as directed once a day; Duration: 30 07/26/2022ctiveLancet Device -as directed daily; Duration: 07/26/2022ctiveamLODIPine Besylate 5 MG1 tablet Orally Once a day; Duration: 90 daysActivehydroCHLOROthiazide 25 MG1 tablet in the morning Orally Once a day; Duration: 90 daysActiveAtorvastatin Calcium 10 MGTAKE 1 TABLET BY MOUTH DAILY Oral Once a day; Duration: 90 daysActiveMeloxicam 7.5 MG1 tablet Orally Once a day; Duration: 30 days10/06/2025ActiveOmeprazole 20 MG1 capsule 30 minutes before morning meal Orally Once a day; Duration: 90 daysActivemetFORMIN HCl ER 500 MG2 tablets Orally twice a day; Duration: 30 days5Active Loratadine 10 MG1 tablet Orally Once a dayActive Social History Tobacco Use: Social History Observation Description Date Details (start date - stop date) Former Smoker NA - NA Sex Assigned At : Social History Observation Description Sex Assigned At Female Household Question Answer Notes Number of adults in household: 2 Number of children in household:0Tobacco Use/Smoking Question Answer Notes How long has it been since you last smoked? 5-10 years patient entered data Tobacco use: former smoker patient enter ed data CAGE-AID Questionnaire (2018 Edition) Question Answer Notes Have you ever felt that you ought to cut down on your drinking or drug use? No Have people annoyed you by criticizing your drinking or drug use?Nopatient entered dataHave you ever felt bad or guilty about your drinking or drug use?No Have you ever had a drink or used drugs first thing in the morning to steady your nerves or to get rid of a hangover?Nopatient entered dataCAGE-AID Score0 InterpretationNegativePRAPARE Question Answer Notes Date Completed/Updated: 02/24/2025 jigar nt entered data What is your current housing situation? I have h ousing patient entered data Are you worried about losing your housing? 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 Check all that applyI do not have problems meeting my needsHas lack of transportation kept you from medical appointments, meetings, work or from getting things needed for daily living?No How often do you see or talk to people that you care about and feel close to? (For example: talkingto friends on the phone, visiting friends or family, going to temple or club meetings)More than 5 times a weekpatient entered dataHow stressed are you? Stress is when someone feels tense, nervous, anxious, or can't sleep at nightbecause their mind is troubledNot at allIn the past year have you spent more than 2 nights in a row in a alf, long-term, snf center, or juvenile correctional facility?Nopatient entered dataAre you a refugee?No patient entered dataWhat country are you from?[place] Statespatient entered dataDo you feel physically and emotionally safe where you currently live?Yes patient entered dataIn the past year, have you been afraid of your partner or ex-partner?Nopatient entered dataPRAPARE Score:5Tobacco Control (Standard) Question Answer Notes Tobacco use: Former smoker How long has it been since you last smoked?Greater than 10 years Problems Problem Type SNOMED Code ICD Code Onset Dates Problem Status W/U Status Risk Notes Problem Mixed hyperlipidemia (886896653) Mixed hy perlipidemia (E78.2) ActiveconfirmedProblemType II diabetes mellitus without complication (593919100) Type 2 diabetes mellitus without complication, without long-term current use of insulin (E11.9)ActiveconfirmedProblemSleep apnea (30648985)Sleep apnea-like behavior (G47.39)ActiveconfirmedProblemMorbid obesity (548782423)Obesity, morbid, BMI 50 or higher (E66.01)ActiveconfirmedProblemBody mass index 40+ - severely obese (854541568)BMI 45.0-49.9, adult (Z68.42)ActiveconfirmedProblem Elevated liver enzymes level (312826157)Elevated liver function tests (R79.89) ActiveconfirmedProblemPrimary hypertension (37286017)Primary hypertension (I10) ActiveconfirmedOn Amlodipine and HCTZ no new labsProblemGastroesophageal reflux disease (914943228)GERD (gastroesophageal reflux disease) (K21.9)Activeconfirmed ProblemCervical osteoarthritis (9851630532)Cervical osteoarthritis (M47.812) Activeconfirmed Comment:-hx of chronic neck pain -lateral movements more painful than extension and flexion -started on Baclofen as she has already been on it and helps with arthritis -f/u as needed, Vital Signs Heart Rate 67 /min 03/20/2025 Sitthdvdsey14.2 degrees Wspmakssam93/06/2025Respiratory Rate16 /min03/02/2025 Height-cm160.02 cm03/20/20256315Kdtrxsks59 %03/02/2025lood pressure sdupdytes69 mm Hg03/20/2025Weight-kg127.91 kg03/20/20256378Cjmcsc40.00 in03/20/2025lood pressure rdkoghzx413 mm Hg03/20/20253736Ywsloc827 lbs1MI49.95 kg/m203/20/2025 Encounters Encounter Location Date Provider Diagnosis [address] [id number] 01/19/2025 Faytracy Whyte Primary hypertensi on I10 ; Wellness examination Z00.00 ; Type 2 diabetes mellitus without complication, without long-term current use of insulin E11.9 ; Mixed hyperlipidemia E78.2 ; GERD (gastroesophageal reflux disease) K21.9 ; Dietary counseling Z71.3 ; Exercise counseling Z71.82 and Obesity, morbid, BMI 50 or higher E66.[address] [id number] 02/24/2025 Faytracy Whyte Type 2 diabetes me llitus without complication, without long-term current use of insulin E11.9 and Primary hypertension I10 [address] [id number] 03/02/2025 Fay Whyte Sleep apnea-like b ehavior G47.39 ; Encounter for screening for other disorder Z13.89 and Cervical osteoarthritis M47.812 [facility] [address] [place], [place] [id number] 03/09/2025 [facility] BMI 45.0-49.9, justen lt Z68.42 ; Encounter for dental examination and cleaning with abnormal findings Z01.21 ; Caries of dentin K02.62 ; Necrosis of pulp K04.1 and Encounter for screening for dental disorders Z13.84 [facility] [address] [place], [place] [id number] 03/20/2025 [facility] BMI 45.0-49.9, justen lt Z68.42 and Necrosis of pulp K04.1 Assessments Encounter Date Diagnosis (ICD Code) Assessment Notes Treatment Notes Treatment Clinical Notes Section Notes 01/19/2025 Wellness examination (ICD-10 - Z 00.00) Patient has mammorgram ordered through the health department Patient is here today to complete a yearly wellness exam. Blood work ordered is explained to the patient as to what we would be screening for and what the blood work specifically looks at. All blood work will be reviewed as it is resulted and then corresponded to the patient either by phone, duringa visit, or both. 01/19/2025Primary hypertension (ICD-10 - I10) Resume all HTN medications Pt was advised to take the medications daily as prescribed and call the office if there is any sideeffects due to medications. Pt was advised to check BP at home and document and bring it on the next visit so we can make re-adjustments in the meds if needed. Life Style Modifications were discussed including: Reducing salt intake, regular exercise, reducingweight etc f/up in 2 weeks Go to ER for any chest pain or SOB 02/24/2025Type 2 diabetes mellitus without complication, without long-term current use of insulin (ICD-10 - E11.9) Increase metformin to 1000BID Patient has Diabetes Mellitus Type 2. I recommend home blood sugar readings to be monitored frequently (daily fasting along with random (2 hours after meals). Pt was advised to log the reading with timings and to bring it on the next visit so we can adjust the dose of medications as needed. Pt was advised to inspect the feet daily. Patient was reminded to have yearly eye exam to look for diabetic retinopathy and yearly podiatristvisit and PVU Pt will f/up with repeat labs in 3 months. 03/02/2025Encounter for screening for other disorder (ICD-10 - Z13.89)03/02/2025 Sleep apnea-like behavior (ICD-10 - G47.39) Referral for sleep apnea evaluation Educated on the importance of weight loss to help with sleep apnea Educated on potential complications from sleep apnea 03/09/2025MI 45.0-49.9, adult (ICD-10 - Z68.42)03/20/2025MI 45.0-49.9, adult (ICD-10 - Z68.42)b1Necrosis of pulp (ICD-10 - K04.1)03/09/2025 Encounter for dental examination and cleaning with abnormal findings (ICD-10 - Z01.21)03/02/2025ervical osteoarthritis (ICD-10 - M47.812) Patient would like to start meloxicam for neck pain Patient has tried several muscle relaxers in the past with no relief. Patient does not take NSAIDs daily just prn when it's really bad Continue using heat 02/24/2025Primary hypertension (ICD-10 - I10)HTN stable. Will continue current medications. Encouraged healthy diet and exercise. F/u 3 months & PRN 01/19/2025Type 2 diabetes mellitus without complication, without long-term current use of insulin (ICD-10 - E11.9)DM stable. Will continue current medications. Encouraged healthy diet and exercise. F/u 3 months & PRN 01/19/2025Mixed hyperlipidemia (ICD-10 - E78.2) I discussed that food choices impact the cholesterol level and gave information of food that will help bring the cholesterol level down. Pt was advised to start doing exercise - atleast for 30 min 5 days a week. I will repeat the lipid profile 03/09/2025aries of dentin (ICD-10 - K02.62)03/09/2025Necrosis of pulp (ICD-10 - K04.1)01/19/2025GERD (gastroesophageal reflux disease) (ICD-10 - K21.9)GERD stable. Will continue current medications. F/u 3 months & PRN01/19/2025Dietary counseling (ICD-10 - Z71.3)Encoruaged eating a healthy, balanced diet and increasing activity level by engaging in exercise atleast 30 min x atleast 5 days a week.03/09/2025Encounter for screening for dental disorders (ICD-10 - Z13.84)01/19/2025Exercise counseling (ICD-10 - Z71.82)The patient was encouraged to increase exercise weekly to at least 3-4 times per week for 30-45 minutes for each session. Exercise may include but is not limited to walking, jogging, running, resistance training, water aerobics and strength training. Benefits of increasing exercise regimens may include healthier lifestyle, stronger bone health, diminished aches and pain, and better metabolism.01/19/2025Obesity, morbid, BMI 50 or higher (ICD-10 - E66.01) Plan Of Treatment Pending Test Test Name Order Date 2019 NOVEL CORONAVIRUS (COVID-19), KAYKAY L C - SEND ([id number]) 05/17/2020 Next Appt Details Provider Name:Sofiya Izquierdo tuan, 04/22/2025 10:15:00 AM, [address] [place] [address], [phone], Provider Name:Fay Matute tuan, 05/25/2025 01:15:00 PM, [address] [place] [address], [phone], Provider Name:Sofiya Izquierdo tuan, 06/01/2025 01:45:00 PM, [address] [place] [address], [phone], Insurance Providers Payer Name Payer Address Payer Phone Subscriber Number Group Number Insured Name Patient Relationship to Insured Coverage Start Date Coverage End Date [facility] [address] [place] [address] [id number] Domitila, CrystalSelf - patient is the dxhkinq4401/26/20[facility] [employer] [place] [address] [place] [phone], CrystalSelf - patient is the qofojyb4105/28/2024Medicaid [facility] [place] [address] [id number], CrystalSelf - patient is the ywpurmy5301/26/2025DMedicaid [facility] after [place] [employer] [address] [place], [place] [id number] Domitila, CrystalSelf - patient is the whokivg3705/28/2024 Medical (General) History Medical History History ICD Code Arthritis BP (high blood pressure)Cervical osteoarthritisGERD (gastroesophageal reflux disease)Surgical History Surgery Date(Month/Year) Tubal Ligation
--- OUTSIDE RECORDS SUMMARY | 2025-04-02 12:38 | XMS_ITS | Clinical Summary ---
Author Organization [facility] tem Address [id number] [address] [place] [address] Care Team Providers Care Progressive Care Manager Name Role Phone Services, [facility] Primary Care Provider Allergies No known active allergies Medications MedicationSigDispense QuantityRefillsLast FilledStart DateEnd DateStatus amLODIPine (NORVASC) 10 mg tablet Take 5 mg by mouth daily.Active omeprazole (PriLOSEC) 10 mg capsule Take 10 mg by mouth as needed.Active HYDROCHLOROTHIAZIDE ORAL Take by mouth.Active fluticasone propionate (FLONASE) 50 mcg/actuation nasal spray Administer 1 spray into each nostril in the morning. 16 g 2Active metFORMIN (GLUCOPHAGE) 850 mg tablet Take 1 tablet (850 mg total) by mouth in the morning and 1 tablet (850 mg total) in the evening. Take with meals.Active Active Problems ProblemNoted DateDiagnosed DateEssential oyrrmrdlmfis84/11/2018 Overview (02/05/2018): Takes medications prescribed per Katt Angel or Dr. Joseph Bleeding after dijvkjdfxba89/11/2018Obesity due to excess fccaehyd57/11/2018 Encounters DateTypeDepartmentCare FemdTwsjxivhssl86/26/2025Travelfrom Last 3 Months Family History Medical HistoryRelationNameCommentsDiabetesFatherHypertensionFatherColon cancer Maternal AuntHeart attackMaternal GrandfatherHeart attackSisterBreast cancerNeg HxRelationNameStatusCommentsFatherMaternal AuntMaternal GrandfatherSister Social History Tobacco UseTypesPacks/DayYears UsedDateSmoking Tobacco: FormerCigarettes Smokeless Tobacco: NeverAlcohol UseStandard Drinks/WeekCommentsYes0 (1 standard drink = 0.6 oz pure alcohol)rareChildcareAnswerDate RecordedChildcareUnknown 11/06/2018EmploymentAnswerDate TnborebjNfjeqzlapcRrrrymy76/12/2019Hunger ScreeningAnswerDate RecordedWithin the past 12 months we worried whether our food would run out before we got money to buy more.Never True12/19/2022Within the past 12 months the food we bought just didn't last and we didn't have money to get more.Never True3Purpose - LifeAnswerDate RecordedPurpose and direction in haqrXtljlqn67/08/2021CommentsNoSex and Gender Information ValueDate RecordedSex Assigned at BirthNot on fileLegal DxhGrwhds05/06/2015 11:35 AM EDTGender IdentityNot on fileSexual OrientationNot on file Last Filed Vital Signs Vital SignReadingTime TakenCommentsBlood Azdnizrn878/90243 6:18 PM EDT Kqctm849612/19/2022 6:18 PM CZFHhjfzydfiyw07.8 ??C (98.3 ??F)12/19/2022 6:18 PM EDTRespiratory Pehn668412/19/2022 6:18 PM EDTOxygen Jvrsbrrxas01%12/19/2022 6:18 PM EDTInhaled Oxygen Concentration--Vtuwml679.6 kg (281 lb 6.4 oz)12/19/2022 6:18 PM BERSllwez575 cm (5' 3 )06/01/2022 12:51 PM ESTBody Mass Index49.85 06/01/2022 12:51 PM EST Plan of Treatment Health MaintenanceDue DateLast DoneCommentsDiabetic Ophthalmology Exam1975 Depression Lcoqgjdxr83/11/1988Tobacco Nlmtgxdum84/11/1988Diabetic Foot Exam 1993Pap Smear1996Adult BMI Cjwqdkkhw37/OVID-19 Vaccine ( season), 12/24/2020Influenza Vaccine /, 03/21/2016Statin Use: Vhkuyozj96 DTaP,Tdap and Td Vaccines (2 - Td or Tdap) Medical Devices Not on file Procedures Procedure NamePriorityDate/TimeAssociated DiagnosisCommentsHEMOGLOBIN E0WZeyitpu 01/20/2025 2:10 PM EDT Type 2 diabetes mellitus without complications ([facility]) Gastro-esophageal reflux disease without esophagitis Mixed hyperlipidemia LIPID VORMOSRXfcafom14/26/2025 2:10 PM EDT Type 2 diabetes mellitus without complications ([facility]) Gastro-esophageal reflux disease without esophagitis Mixed hyperlipidemia CBC WITH AUTO AWEMPYGLNDNZLrjoedv56/26/2025 2:10 PM EDT Type 2 diabetes mellitus without complications ([facility]) Gastro-esophageal reflux disease without esophagitis Mixed hyperlipidemia COMPREHENSIVE METABOLIC CANUXLfabjuf33/26/2025 2:10 PM EDT Type 2 diabetes mellitus without complications ([facility]) Gastro-esophageal reflux disease without esophagitis Mixed hyperlipidemia from Last 3 Months Results * CBC auto differential (01/20/2025 2:10 PM EDT)ComponentValueRef RangeTest MethodAnalysis TimePerformed AtPathologist SignatureWBC7.44 - 11 x10E9/L 01/20/2025 7:10 PM [facility] LABORATORYRBC Count4.493.8 - 5.2 X10E12/L01/20/2025 7:10 PM [facility] Eqlcrhgsdx52.511.7 - 15.5 g/dL01/20/2025 7:10 PM [facility] EMISHLXNPLOqsdejykpa22.835 - 47 %01/20/2025 7:10 PM [facility] TFLUVKYCVFJGU4986 - 100 fL01/20/2025 7:10 PM [facility] ZWEEJXVDNKODQ42.827 - 34 pg01/20/2025 7:10 PM [facility] FBLWOQZIUKVMDB72.032 - 36 g/dL01/20/2025 7:10 PM [facility] RVDNVPUBEJFHV32.111.5 - 15 %01/20/2025 7:10 PM [facility] LABORATORYPlatelet Zagul487239 - 450 X10E9/L01/20/2025 7:10 PM [facility] LABORATORYMPV9.37 - 12 fL01/20/2025 7:10 PM [facility] LABORATORYNeutrophils %65.0%01/20/2025 7:10 PM [facility] LABORATORYLymphocytes %23.0%01/20/2025 7:10 PM [facility] LABORATORYMonocytes %6.5%01/20/2025 7:10 PM [facility] LABORATORYEosinophils %4.7%01/20/2025 7:10 PM [facility] LABORATORYBasophils %0.8%01/20/2025 7:10 PM [facility] LABORATORYNeutrophils Absolute (A)4.81.5 - 6.6 10*3/uL 01/20/2025 7:10 PM [facility] LABORATORYLymphocytes Absolute 1.71.0 - 3.5 10*3/uL01/20/2025 7:10 PM [facility] Monocytes Absolute0.50.0 - 0.9 10*3/uL01/20/2025 7:10 PM [facility] LABORATORYEosinophils Absolute0.40.0 - 0.4 10*3/uL01/20/2025 7:10 PM [facility] LABORATORYBasophils Absolute0.10.0 - 0.2 10*3/uL 01/20/2025 7:10 PM [facility] LABORATORYDifferential Type AUTOMATED JUBHGIDKGQJM05/26/2025 7:10 PM [facility] LABORATORYSpecimen (Source)Anatomical Location / LateralityCollection Method / VolumeCollection TimeReceived TimeBloodVenous blood / UnknownVenipuncture / Oxwqsuq9001/20/2025 2:10 PM EDT01/20/2025 2:10 PM EDT Narrative Authorizing ProviderResult TypeResult StatusNancynaveedking Whyte DOCUMENT PROCESSOR-CNPLAB BLOOD ORDERABLESFinal ResultPerforming OrganizationAddressCity/State/ZIP CodePhone Number [facility] [address] [place] [address], * (ABNORMAL) Hemoglobin A1c (01/20/2025 2:10 PM EDT)ComponentValueRef RangeTest MethodAnalysis TimePerformed AtPathologist SignatureHEMOGLOBIN A1C7.1(H)4.4 - 5.6 %01/20/2025 8:28 PM [facility] LABORATORYComment: ?ADA Guidelines ?Result ?HgbA1c ? Normal : ? less than 5.7 % ? Prediabetes : ?5.7 % ??to 6.4 % Diabetes : > 6.4 % ?Use with caution in patients with abnormal hemoglobin variants as ??the half-life of red blood cells and in vivo glycation rates are ??affected. EST. AVERAGE DJAMGNT187zc/dL01/20/2025 8:28 PM [facility] LABORATORYSpecimen (Source)Anatomical Location / LateralityCollection Method / VolumeCollection TimeReceived TimeBloodVenous blood / UnknownVenipuncture / Vctdtnu0601/20/2025 2:10 PM EDT01/20/2025 2:10 PM EDT Narrative Authorizing ProviderResult TypeResult StatusPhongking Whyte DOCUMENT PROCESSOR-CNPLAB BLOOD ORDERABLESFinal ResultPerforming OrganizationAddressCity/State/ZIP CodePhone Number [facility] [address] [place] [address], * (ABNORMAL) Lipid profile (01/20/2025 2:10 PM EDT)ComponentValueRef RangeTest MethodAnalysis TimePerformed AtPathologist MuytmhmzmWHUDYMXBEKR162(L)150 - 200 mg/dL01/20/2025 7:39 PM [facility] CFXQNTAHAOSYHWHTYUWGQY743 (H)27 - 150 mg/dL01/20/2025 7:39 PM [facility] LABORATORYHDL OZZNNPMZMBV89(L)>39 mg/dL01/20/2025 7:39 PM [facility] LABORATORYComment: HDL <40 mg/dL - High Risk HDL > or = 40mg/dL- Desirable HDL >60 mg/dL - Negative Risk LDL (CALC)77<130 mg/dL01/20/2025 7:39 PM [facility] Comment: LDL <100 mg/dL - Desirable LDL >160 mg/dL - High Risk CHOLESTEROL:HDL3.81.0 - 5.008 7:39 PM [facility] LABORATORYVERY LOW STDEGNBNAOB98(H)0 - 30 mg/dL01/20/2025 7:39 PM [facility] LABORATORYSpecimen (Source)Anatomical Location / Laterality Collection Method / VolumeCollection TimeReceived TimeBloodVenous blood / UnknownVenipuncture / Wyhbvcx3601/20/2025 2:10 PM EDT01/20/2025 2:10 PM EDT Narrative Authorizing ProviderResult TypeResult StatusAbigail Tani Whyte DOCUMENT PROCESSOR-CNPLAB BLOOD ORDERABLESFinal ResultPerforming OrganizationAddressCity/State/ZIP CodePhone Number [facility] [address] [place] [address], * (ABNORMAL) Comprehensive metabolic panel (01/20/2025 2:10 PM EDT)Component ValueRef RangeTest MethodAnalysis TimePerformed AtPathologist SignatureSODIUM 194186 - 146 mmol/L01/20/2025 7:39 PM [facility] POTASSIUM4.03.5 - 5.0 mmol/L01/20/2025 7:39 PM [facility] ZHPXSRUYOLBICPSRAE76784 - 109 mmol/L01/20/2025 7:39 PM [facility] LABORATORYCARBON CAHOQRP2999 - 32 mmol/L01/20/2025 7:39 PM [facility] LABORATORYANION GAP95 - 15 mmol/L01/20/2025 7:39 PM [facility] LABORATORYBLOOD UREA TFWGGLHI737 - 23 mg/dL01/20/2025 7:39 PM [facility] LABORATORYCREATININE0.670.40 - 1.00 mg/dL 01/20/2025 7:39 PM [facility] LABORATORYComment:METHOD TRACEABLE TO IDWY EPGAPHFNSQGZRYK817(H)65 - 99 mg/dL01/20/2025 7:39 PM [facility] LABORATORYCALCIUM9.08.5 - 10.5 mg/dL01/20/2025 7:39 PM [facility] LABORATORYTOTAL PROTEIN7.06.0 - 8.0 g/dL 01/20/2025 7:39 PM [facility] LABORATORYALBUMIN4.03.2 - 5.3 g/dL01/20/2025 7:39 PM [facility] LABORATORYALKALINE VODNXXKBFIL2057 - 130 U/L01/20/2025 7:39 PM [facility] WLDQKCVEDUEFG23<=41 U/L01/20/2025 7:39 PM [facility] IKSPEAGGKJJTZ38<=31 U/L01/20/2025 7:39 PM [facility] LABORATORYBILIRUBIN,TOTAL0.80.3 - 1.2 mg/dL01/20/2025 7:39 PM [facility]ORATORYEGFR Non-Race Dependent>90>=60 ml/min/1.73sq.m 01/20/2025 7:39 PM [facility] LABORATORYComment: Reported eGFR is based on the CKD-EPI 2020 equation that does not use a race coefficient. EGFR not calculated due to patient's gender not being defined. Specimen (Source)Anatomical Location / LateralityCollection Method / Volume Collection TimeReceived TimeBloodVenous blood / UnknownVenipuncture / Unknown 01/20/2025 2:10 PM EDT01/20/2025 2:10 PM EDT Narrative Authorizing ProviderResult TypeResult StatusAbigaking Whyte DOCUMENT PROCESSOR-CNPLAB BLOOD ORDERABLESFinal ResultPerforming OrganizationAddressCity/State/ZIP CodePhone Number [facility] [address] [place] [address], from Last 3 Months Insurance Care Teams Team MemberRelationshipSpecialtyStart DateEnd [facility], [facility] [address] [place] PCP - GeneralFamily Medicine10/09/18
--- OUTSIDE RECORDS SUMMARY | 2025-04-02 12:44 | XMS_ITS | CCD ---
Author Organization [facility] Care Team Providers Care Brick Washer Name Role Phone [facility] Attending Unavailable [facility] Consulting Unavailable [facility] Admitting Unavailable ECHO ACHARYA Attending Unavailab le JAMIE, ECHO Granado Referring Unavailab LANRE Veras Attending Unavailable ACHARYA, ECHO Granado Referring Unavailab le BRARCELIA LIU Attending Unavailable ACHARYA, ECHO Granado Referring Unavailab gloria GIORDANO, ARCELIA Attending Unavailable ACHARYA, ECHO Granado Referring Unavailab le BRARCELIA LIU Attending Unavailable ACHARYA, ECHO Granado Referring Unavailab gloria Kaplan MD, [facility] Primary Care Provider ALBARO MARIA Referring Unavailable SERVICES, [facility] Primary Care Unava ilable Medications Current Medications MedicationDrug Class(es)DatesSig (Normalized)Sig (Original)amLODIPine 5 mg oral tablet (8 sources)Dihydropyridine Calcium Channel BlockerStart: 18-13-3520cdyk 1 tablet by mouth once dailyamLODIPine (Norvasc) 5 MG tablet Indications: Essential hypertension (CMS/HCC) TAKE 1 TABLET BY MOUTH DAILY 90 tablet 09/30/2024 Active Start: 09-11-2024 End: 53-82-6291tjyq 1 tablet by mouth once dailyamLODIPine (Norvasc) 5 MG tablet Indications: Essential hypertension (CMS/HCC) Take 1 tablet (5 mg)by mouth Daily 90 tablet 09/11/2024 09/30/2024 Discontinuedatorvastatin 10 mg oral tablet (7 sources)HMG-CoA Reductase InhibitorStart: 36-20-3029zzqy 1 tablet by mouth once dailyatorvastatin (Lipitor) 10 MG tablet Indications: Mixed hyperlipidemia (CMS/HCC) Take 1 tablet (10 mg) by mouth Daily 90 tablet 09/11/2024 ActiveStart: 12-01-2023 End: 58-61-0237zxda 1 tablet by mouth once dailyatorvastatin (Lipitor) 10 MG tablet Indications: Mixed hyperlipidemia (CMS/HCC) Take 1 tablet (10 mg) by mouth Daily 90 tablet 3 12/01/2023 09/11/2024 Discontinued (Reorder) hydroCHLOROthiazide 25 mg oral tablet (8 sources)Thiazide DiureticStart: 58-52-5095apgs 1 tablet by mouth in the morninghydroCHLOROthiazide (HYDRODiuril) 25 MG tablet Indications: Essential hypertension (CMS/HCC) Take 1tablet (25 mg) by mouth in the morning. 90 tablet 09/11/2024 ActiveStart: 06-24-2024 End: 03-45-2861qknz 1 tablet by mouth in the morninghydroCHLOROthiazide (HYDRODiuril) 25 MG tablet Indications: Essential hypertension (CMS/HCC) TAKE 1 TABLET BY MOUTH IN THE MORNING 90 tablet 06/24/2024 09/11/2024 Discontinued (Reorder)Start: 03-11-2024 End: 04-68-9157mbsf 1 tablet by mouth in the morninghydroCHLOROthiazide (HYDRODiuril) 25 MG tablet Indications: Essential hypertension (CMS/HCC) Take 1 tablet (25 mg) by mouth in the morning. 90 tablet 03/11/2024 Activetake 1 tablet by mouth in the morninghydroCHLOROthiazide (HYDRODiuril) 25 MG tablet Take 25 mg by mouth in the morning. ActivemetFORMIN hydrochloride 850 mg oral tablet (7 sources)BiguanideStart: 02-21-2024 End: 32-09-8033gnyo 1 tablet by mouth in the morningmetFORMIN (Glucophage) 850 MG tablet Indications: Type 2 diabetes mellitus without complication, without long-term current use of insulin Take 1 tablet (850 mg) by mouth in the morning and 1 tablet (850 mg) in the evening. Take with meals. 180 tablet 3 02/21/2024 Activenaproxen 375 mg oral tablet (6 sources)Nonsteroidal Anti-inflammatory DrugStart: 02-47-1898ksmm 1 tablet by mouth once daily in the morning, then take 1 tablet by mouth at mealtimenaproxen (Naprosyn) 375 MG tablet TAKE 1 TABLET BY MOUTH EVERY MORNING AND 1 IN THE EVENING WITH MEALS FOR 7 DAYS 12/19/2022 Activeomeprazole 10 mg delayed release oral capsule (6 sources)Proton Pump Inhibitortake 2 capsules by mouth every twenty-four hours as neededomeprazole (PriLOSEC) [address] capsule Take 20 mg by mouth Daily as needed Active Problems Active Problems Problem ClassificationProblemDateDocumented DateEpisodic/ChronicDiabetes mellitus without complication (8 sources)Diabetes mellitus; Translations: [Type 2 diabetes mellitus without complications]Onset: 223315-00-1108CjmywcuBqztiufal of lipid metabolism (8 sources)Hypertriglyceridemia; Translations: [Pure hyperglyceridemia]Onset: 278673-78-4267PtlqxkqZhpjhhohkv disorders (7 sources)Gastroesophageal reflux disease; Translations: [Gastro-esophageal reflux disease without esophagitis]Onset: 283184-98-9876MfvibwaGggbnpncl hypertension (15 sources)Essential hypertension; Translations: [Essential (primary) hypertension]Onset: 02-05-2018 Resolved: 894756-09-3819SowjxxtQexmndpziwibo and screening for infectious disease (4 sources)Contact with and (suspected) exposure to other viral communicable diseases; Translations: [CONTCT EXPS OTH VIRL COMMUNICABL DZ]Onset: 05-17-2020 EpisodicNutritional deficiencies (6 sources)Vitamin D deficiency; Translations: [Vitamin D deficiency, unspecified]Onset: 371510-89-3452FnfwrvxRepqwrpcjjychu (6 sources)Arthritis; Translations: [Unspecified osteoarthritis, unspecified site]77-57-8866JyoguhuGlvux nutritional; endocrine; and metabolic disorders (6 sources)Obesity caused by energy imbalance; Translations: [Other obesity due to excess calories]Onset: 289159-38-3350UecdltvFdrcsnajago; intervertebral disc disorders; other back problems (6 sources)Cervical arthritis; Translations: [Spondylosis without myelopathy or radiculopathy, cervical region]Onset: 189931-24-4510Qzyhmcx Past or Other Problems Problem ClassificationProblemDateDocumented DateEpisodic/ChronicSpondylosis; intervertebral disc disorders; other back problems (6 sources)Neck pain; Translations: [Cervicalgia]Onset: 005250-74-0509 Episodic Results Test NameValueInterpretationReference RangeFacilityCBC WITH AUTO DIFFERENTIALon 25-69-1821BAHDWIRBR ABSOLUTE COUNT (10*3/UL) BY AUTOMATED COUNT0.1 10*3/uLNormal 0.0-0.2PAdena Pike Medical CenterComment on above:Performed By: #### CBCA #### [facility] ([facility]) [address] [place] [address] VIRBASOPHILS RELATIVE PERCENT BY AUTOMATED COUNT0.8 %Normal [facility] CenterComment on above:Performed By: #### CBCA #### [facility] ([facility]) [address] [place] [address] VIRCELLAVISION DIFFERENTIAL TYPEAUTOMATED DIFFERENTIALNormal [facility] CenterComment on above:Performed By: #### CBCA #### [facility] ([facility]) [address] [place] [address] VIREosinophils (Bld) [#/Vol]0.4 10*3/uLNormal0.0-0.4[facility] CenterComment on above:Performed By: #### CBCA #### [facility] ([facility]) [address] [place] [address] VIREOSINOPHILS RELATIVE PERCENT BY AUTOMATED COUNT4.7 %Normal [facility] CenterComment on above:Performed By: #### CBCA #### [facility] ([facility]) [address] [place] [address] VIRErythrocyte distribution width (RBC) [Ratio]14.1 %Normal 11.5-15[facility] Medical CenterComment on above:Performed By: #### CBCA #### [facility] ([facility]) [address] [place] [address] VIRHematocrit (Bld) [Volume fraction]37.8 %Edmhma89-83KcnNgvgaeTexas Children'S HospitalComment on above:Performed By: #### CBCA #### [facility] ([facility]) [address] [place] [address] VIRHemoglobin (Bld) [Mass/Vol]12.5 g/lNTyeqku13.7-15.5PAdena Pike Medical CenterComment on above:Performed By: #### CBCA #### [facility] ([facility]) [address] [place] [address] VIRLYMPHOCYTES ABSOLUTE COUNT (10*3/UL) BY AUTOMATED COUNT1.7 10*3/uLNormal1.0-3.5PAdena Pike Medical CenterComment on above:Performed By: #### CBCA #### [facility] ([facility]) [address] [place] [address] VIRLYMPHOCYTES RELATIVE PERCENT BY AUTOMATED COUNT23.0 %Normal [facility] Medical CenterComment on above:Performed By: #### CBCA #### [facility] ([facility]) [address] [place] [address] VIRMCH (RBC) [Entitic mass]27.8 lvDargld28-24AdxOfftehAshtabula County Medical CenterComment on above:Performed By: #### CBCA #### [facility] ([facility]) [address] [place] [address] VIRMCHC (RBC) [Mass/Vol]33.0 g/sZIjpnzq53-95CydQybqkkTexas Children'S HospitalComment on above:Performed By: #### CBCA #### [facility] ([facility]) [address] [place] [address] VIRMCV (RBC) [Entitic vol]84 sABbhbue22-201HkcUkgknj [facility] HospitalComment on above:Performed By: #### CBCA #### [facility] ([facility]) [address] [place] [address] VIRMONOCYTES ABSOLUTE COUNT (10*3/UL) BY AUTOMATED COUNT0.5 10*3/uLNormal0.0-0.9[facility] Medical CenterComment on above:Performed By: #### CBCA #### [facility] ([facility]) [address] [place] [address] VIRMONOCYTES RELATIVE PERCENT BY AUTOMATED COUNT6.5 %Normal [facility] Medical CenterComment on above:Performed By: #### CBCA #### [facility] ([facility]) [address] [place] [address] VIRNEUTROPHILS ABSOLUTE COUNT BY AUTOMATED COUNT4.8 10*3/uL Normal1.5-6.6[facility] Medical CenterComment on above:Performed By: #### CBCA #### [facility] ([facility]) [address] [place] [address] VIRNEUTROPHILS RELATIVE PERCENT BY AUTOMATED COUNT65.0 %Normal [facility] CenterComment on above:Performed By: #### CBCA #### [facility] ([facility]) [address] [place] [address] VIRPlatelet mean volume (Bld) [Entitic vol]9.3 fLNormal7-12 [facility] CenterComment on above:Performed By: #### CBCA #### [facility] ([facility]) [address] [place] [address] VIRPlatelets (Bld) [#/Vol]254 10*3/wSGygojl844-941GvnMtrlzf [facility] HospitalComment on above:Performed By: #### CBCA #### [facility] ([facility]) [address] [place] [address] VIRRBC COUNT4.49 X10E12/LNormal3.8-5.2PAdena Pike Medical CenterComment on above:Performed By: #### CBCA #### [facility] ([facility]) [address] [place] [address] VIRWBC (Bld) [#/Vol]7.4 10*3/uLNormal4-11[facility] Medical CenterComment on above:Performed By: #### CBCA #### [facility] ([facility]) [address] [place] [address] VIRCOMPREHENSIVE METABOLIC PANELon 40-08-9158Fhkkqzl [Mass/Vol] 4.0 g/dLNormal3.2-5.3PAdena Pike Medical CenterComment on above:Performed By: #### CMP #### [facility] ([facility]) [address] [place] [address] VIRALP [Catalytic activity/Vol]83 U/KGarglk71-144LilQmokidTexas Children'S HospitalComment on above:Performed By: #### CMP #### [facility] ([facility]) [address] [place] [address] VIRALT [Catalytic activity/Vol]12 U/LNormal<=31PAdena Pike Medical CenterComment on above:Performed By: #### CMP #### [facility] ([facility]) [address] [place] [address] VIRAnion gap [Moles/Vol]9 mmol/LNormal5-15ProTexas Children'S HospitalComment on above:Performed By: #### CMP #### [facility] ([facility]) [address] [place] [address] VIRAST [Catalytic activity/Vol]27 U/LNormal<=41ProTexas Children'S HospitalComment on above:Performed By: #### CMP #### [facility] ([facility]) [address] [place] [address] VIRBilirubin [Mass/Vol]0.8 mg/dLNormal0.3-1.2PAdena Pike Medical CenterComment on above:Performed By: #### CMP #### [facility] ([facility]) [address] [place] [address] VIRCalcium [Mass/Vol]9.0 mg/dLNormal8.5-10.5PAdena Pike Medical CenterComment on above:Performed By: #### CMP #### [facility] ([facility]) [address] [place] [address] VIRChloride [Moles/Vol]107 mmol/KGpmjea18-594DxtUmjmywTexas Children'S HospitalComment on above:Performed By: #### CMP #### [facility] ([facility]) [address] [place] [address] VIRCO2 [Moles/Vol]27 mmol/FNzysei65-80NduDimoqmAdena Pike Medical CenterComment on above:Performed By: #### CMP #### [facility] ([facility]) [address] [place] [address] VIRCreatinine [Mass/Vol]0.67 mg/dLNormal0.40-1.00ProTexas Children'S HospitalComment on above:Result Comment: METHOD TRACEABLE TO IDMS STANDARDPerformed By: #### CMP #### [facility] ([facility]) [address] [place] [address] VIREGFR (CKD-EPI) NON-RACE DEPENDENT>^90Normal>=60ProTexas Children'S HospitalComment on above:Result Comment: Reported eGFR is based on the CKD-EPI 2021 equation that does not use a race coefficient. EGFR not calculated due to patient's gender not being defined.Performed By: #### CMP #### [facility] ([facility]) [address] [place] [address] VIRGlucose [Mass/Vol]107 mg/wMErjz98-02IfbVpzlizTexas Children'S HospitalComment on above:Performed By: #### CMP #### [facility] ([facility]) [address] [place] [address] VIRPotassium [Moles/Vol]4.0 mmol/LNormal3.5-5.0ProTexas Children'S HospitalComment on above:Performed By: #### CMP #### [facility] ([facility]) [address] [place] [address] VIRProtein [Mass/Vol]7.0 g/dLNormal6.0-8.0[facility] CenterComment on above:Performed By: #### CMP #### [facility] ([facility]) [address] [place] [address] VIRSodium [Moles/Vol]143 mmol/NKgiocd052-383LrkNpziyx [facility] HospitalComment on above:Performed By: #### CMP #### [facility] ([facility]) [address] [place] [address] VIRUrea nitrogen [Mass/Vol]14 mg/dLNormal5-23ProTexas Children'S HospitalComment on above:Performed By: #### CMP #### [facility] ([facility]) [address] [place] [address] VIRHEMOGLOBIN A1Con 32-97-0416Blvrkob [Mass/Vol]157 mg/dLNormal [facility] CenterComment on above:Performed By: #### HA1C #### [facility] ([facility]) [address] [facility] [address] [place] [address] CTNRxW8c (Bld) [Mass fraction]7.1 %High4.4-5.6As[facility] County Medical CenterComment on above:Result Comment: ADA Guidelines Result HgbA1c Normal : less than 5.7 % Prediabetes : 5.7 % to 6.4 % Diabetes : > 6.4 % Use with caution in patients with abnormal hemoglobin variants as the half-life of red blood cells and in vivo glycation rates are affected.Performed By: #### HA1C #### [facility] ([facility]) [address] [place] [address] VIRLIPID PROFILEon 47-82-5037Pqbsodndauk [Mass/Vol]148 mg/dLLow 150-200ProTexas Children'S HospitalComment on above:Performed By: #### LIPR #### [facility] ([facility]) [address] [place] [address] VIRCholesterol in HDL [Mass/Vol]39 mg/dLLow>39As[facility] Medical CenterComment on above:Result Comment: HDL <40 mg/dL - High Risk HDL > or = 40mg/dL- Desirable HDL >60 mg/dL - Negative RiskPerformed By: #### LIPR #### [facility] ([facility]) [address] [place] [address] VIRCholesterol in LDL [Mass/Vol]77 mg/dLNormal<130ProTexas Children'S HospitalComment on above:Result Comment: LDL <100 mg/dL - Desirable LDL >160 mg/dL - High RiskPerformed By: #### LIPR #### [facility] ([facility]) [address] [place] [address] VIRCHOLESTEROL:HDL3.2Eedvbv5.0-5.0[facility] Comment on above:Performed By: #### LIPR #### [facility] ([facility]) [address] [place] [address] VIRTriglyceride [Mass/Vol]158 mg/fYYpqj99-664LnpWeufagTexas Children'S HospitalComment on above:Performed By: #### LIPR #### [facility] ([facility]) [address] [place] [address] VIRVERY LOW AVYAKZCZERX04 mg/dLHigh0-30ProTexas Children'S HospitalComment on above:Performed By: #### LIPR #### [facility] ([facility]) [address] [place] [address] VIRXR CERVICAL SPINE AP/LAT/FLEX/EXTon 05-94-1582RG CERVICAL SPINE AP/LAT/FLEX/EXTFINDINGS: Cervical vertebral bodies are preserved in height and are relatively normally aligned. Mild disc space loss with mild posterior and anterior osteophyte formation C5-6. Mild diffuse facet arthropathy.No fracture or focal soft tissue swelling is seen. Prevertebral soft tissues are normal. Flexion and extension maneuvers demonstrate normal alignment, no instability. IMPRESSION: 1. C5-6 arthritis, normal alignment 2. No instability TRANSCRIBED BY: ELECTRONICALLY SIGNED BY: Onel Lora AvailableCovid-19 PCR ([facility])on 57-50-8137Pcvvl-19 PCRNOT DETECTEDNormalNOT DETECTEDFlower Hospital on above:Result Comment: This test is not yet approved or cleared by the [place] FDA. When there are no FDA-approved or cleared tests available, and other criteria are met, FDA can make tests available under an emergency access mechanism called an Emergency Use Authorization (EUA). The EUA for this test is supported by the [place] [employer] of Health and Human Service's (HHS's) declaration [...] no longer be used). Performed By: #### [facility] #### [facility] [address] [place] [address] Olivia Correa [facility] on above: Result Comment: This test is not yet approved or cleared by the [place] FDA. When there are no FDA-approved or cleared tests available, and other criteria are met, FDA can make tests available under an emergency access mechanism called an Emergency Use Authorization (EUA). The EUA for this test is supported by the [place] of Health and Human Service?s (HHS?s) declaration [...] the context of a patients recent exposures andthe presence of clinical signs and symptoms consistent with SARS-CoV-2.Performed By: #### CVDTBH #### [facility] [address] [place], [place] [address] Olivia Thomas Encounters Encounter DateEncounter TypeCare ProviderFacilityStart: 13-77-6017nshcipvxyz ALBARO Freire [facility]ertart: 09-30-2024 End: 00-78-4435VvvrtvFlxbebcv A [place] [employer] AND [employer] BUILDER APPRENTICE Work Phone: [facility] FNR FMComment on above:Essential hypertension (CMS/HCC)Start: 09-11-2024 End: 97-35-6645KdtodxBwayzayl Hohman MD Work Phone: n[facility] FNR FMComment on above:Essential hypertension (CMS/HCC); Mixed hyperlipidemia (CMS/HCC)Start: 03-11-2024 End: 01-83-2071Anugwjcfd encounterChristy Catrachita Acharya JIG AND FIXTURE BUILDER APPRENTICE Work Phone: [facility] FNR FMComment on above:Essential hypertension (CMS/HCC) (Primary Dx)Start: 02-21-2024 End: 13-93-9603Crxuli OnlyChristy Catrachita Acharya JIG AND FIXTURE BUILDER APPRENTICE Work Phone: [facility] FNR FMComment on above:Type 2 diabetes mellitus without complication, without long-term current use of insulin (CMS/HCC) (P rimary Dx)Start: 02-11-2024 End: 61-99-8325Hsayaeibj encounterFunmi Kaplan MD Work Phone: [facility] FMStart: 12-10-2023 End: 58-61-3864drrkmwwwxiOCIFTHJV BRINKNot AvailableStart: 12-03-2023 End: 35-27-2121fefxonlpkbQYXZUPLU BRINKNot AvailableStart: 11-23-2023 End: 79-59-8396dwsniznnydPLQRSBTE BRINKNot AvailableStart: 11-21-2023 End: 46-05-5493aszmglbaavBTAHEA T BLACKSTONNot AvailableStart: 11-12-2023 End: 60-13-5562nekvtykqpcGLQLSIC A FITZPATRICKNot AvailableStart: 05-17-2020 End: 37-10-0354Ekmlznn encounter [facility]HE[facility] Facility:H1 Procedures DateProcedureProcedure DetailPerforming ClinicianStart: 21-53-4351Lfdtsknwqmn Funmi Kaplan MD Work Phone: Plan of Treatment DateCare ActivityDetailAuthorStart: 59-17-2525Qbmxylap screeningDiabetes: Retinopathy ScreeningNOAR HealthcareStart: 88-89-9370Swcoxjlsd vaccination Influenza Vaccine (Season Ended)[facility] HealthcareStart: 71-15-0636Niyqc screening for proteinDiabetes: Urine Protein ScreeningOGDEN REGIONAL [facility] HealthcareStart: 02-12-2024 Hemoglobin A1c measurementDiabetes: Hemoglobin A7VGNRC HealthcareStart: 74-15-9155Oavnjdkst vaccinationInfluenza Vaccine (#1)[facility] HealthcareStart: 50-30-6243Hqmrblnhu for malignant neoplasm of breastMammogramNOMS Healthcare Start: 96-82-9561Fvllykxfr for malignant neoplasm of cervixNOMS HealthcareStart: 32-88-2144Bfpvwgrtq for malignant neoplasm of cervixPap SmearNOMS Healthcare Start: 12-96-4061Xflmm screening for proteinDiabetes: Urine Protein Screening [facility] HealthcareStart: 21-13-0746Uwfcosnfr for malignant neoplasm of colonNOMS Healthcare Immunizations Immunization DateImmunizationNotesCare DovolbkrBoxdivxw32-34-2950hqgggubzl virus vaccine, unspecified formulationFunmi Kaplan MD Work Phone: [facility] Payers DatePayer CategoryPayerPolicy [id number] Health InsuranceAMBETTER MAYELIN Member Subscriber Plan / Payer (Effective 2023-Present) Name: Praveena Alexandra Relation to Subscriber: Self Name: Praveena Alexandra Payer ID: Not on file Group ID: Not on file Type: Not on file Address: [address] [id number] [employer] [id number] 2023-Present [phone] [address] [place] [address] [id number] 2.16.840.1.758560.3.57[id number] 2.16.840.1.513220.3.57[id number] 2.16.840.1.034388.3.57[id number] 2.16.840.1.260719.3.57[id number] 2.16.840.1.039665.3.57[id number] 2.16.840.1.717405.3.57[id number] 2.16.840.1.594254.3.579.2.742273-22-9986Weqa-[id number] Social History DateTypeDetailFacilityStart: 85-37-1115Npxujtg smoking status NHISEx-smokerNOMS HealthcareHistory of tobacco useCurrent smokerNOMS HealthcareHistory of tobacco useCigarette SmokerNOMS HealthcareStart: 29-10-6673Iijoseh use and exposure Former smokeless tobacco userNOMS HealthcareStart: 47-67-3475Wkgkpwhck beverage intakeCurrent drinker of alcohol (finding)[facility] HealthcareStart: 11-12-2023 History of Social functionNOMS HealthcareStart: 15-33-9138Rhszkgz use panelNOMS HealthcareStart: 76-85-3643Pimzkvo Commentonquintin granado [facility]: 50-39-0027Mkj assigned at birthNot on [facility] Clinical Notes 02-11-2024 to 09-11-2024 Note Date & PewlRnpuVmqlkbdx00-84-3190 Telephone encounter Note* Telephone Encounter - Eileen Solomon - 09/11/2024 9:30 AM EDT Pt has not been seen since 11/12/2023 as a new patient, and has canceled all appointment since then.She states she has no insurance and cannot afford to come in for an appt. She wants this practice to discount her visits or work with her budget. [facility] [id number] Miscellaneous Notes* Telephone Encounter - Eileen Solomon - 09/11/2024 9:30 AM EDT Pt has not been seen since 11/12/2023 as a new patient, and has canceled all appointment since then.She states she has no insurance and cannot afford to come in for an appt. She wants this practice to discount her visits or work with her budget. documented in this [facility]10-15-2024 History of Present illness Narrative* Echo Acharya NP - 03/11/2024 2:19 PM EDT Prescription sent documented in this [facility]10-15-2024 Telephone encounter Note* Telephone Encounter - Katt Powell - 03/11/2024 1:55 PM EDT Patient called lvm @ 1:52pm needing prescription order hydrochlorothiazide 25mg sent to [facility]. Pt has no refills left on medication. Thank you [place] [id number] Miscellaneous Notes* Telephone Encounter - Katt Powell - 03/11/2024 1:55 PM EDT Patient called lvm @ 1:52pm needing prescription order hydrochlorothiazide 25mg sent to [facility]. Pt has no refills left on medication. Thank you documented in this [facility] [id number] History of Present illness Narrative* Echo Acharya NP - 02/21/2024 12:18 PM EDT Orders sent documented in this encounterPer[facility] [id number] Telephone encounter Note* Telephone Encounter - Farheen Wall - 02/11/2024 11:26 AM EDT Patient called this morning with symptoms of UTI- frequency and pain x 2 weeks. She is self pay andwanted to know how much for office visit and testing. I spoke with Renetta who advised me office call would be around $135.00 plus urine dip - due today and culture testing to [facility] if indicated- this would be extra. Chanelle Pump could see today since Dr. Kaplan is full. I left voice message for patient. [facility] [id number] Miscellaneous Notes* Telephone Encounter - Farheen Wall - 02/11/2024 11:26 AM EDT Patient called this morning with symptoms of UTI- frequency and pain x 2 weeks. She is self pay andwanted to know how much for office visit and testing. I spoke with Renetta who advised me office call would be around $135.00 plus urine dip - due today and culture testing to [facility] if indicated- this would be extra. Chanelle Pump could see today since Dr. Kaplan is full. I left voice message for patient. documented in this [facility]* Diagnosis Essential hypertension (CMS/HCC)- Primary Unspecified essential hypertension documented in this encounter [facility] HealthcareEvaluation note* Diagnosis Type 2 diabetes mellitus without complication, without long-term current use of insulin (CMS/HCC)- Primary documented in this encounter [facility] HealthcareEvaluation note* Diagnosis Essential hypertension (CMS/HCC) Unspecified essential hypertension Mixed hyperlipidemia (CMS/HCC) Mixed hyperlipidemia documented in this encounter [facility] HealthcareEvaluation note* Diagnosis Essential hypertension (CMS/HCC) Unspecified essential hypertension documented in this encounter [facility] Healthcare Summary Purpose Family History No Family History Records FoundNo Family History Records FoundNo Family History Records Found Advance Directives No Advanced Directives Records FoundNo Advanced Directives Records FoundNo Advanced Directives Records Found Additional Source Comments INFORMATION SOURCE (unrecogn ized section and content) DATE CREATED AUTHOR 05/27/2020 [facility] DATE CREATED AUTHOR AUTHOR'S ORGANIZ ATION 12/10/2023 [facility] DATE CREATED AUTHOR AUTHOR'S ORGANIZ ATION 01/22/2025 [facility] Care Teams (unrecognized sec tion and content) Team MemberRelationshipSpecialtyStart DateEnd Date Funmi Kaplan MD [address] [place] [address] PCP - [facility]11/26/23Team MemberRelationshipSpecialtyStart DateEnd Date Funmi Kaplan MD [address] [place] [address] PCP - [facility]11/26/23Team MemberRelationshipSpecialtyStart DateEnd Date Funmi Kaplan MD [address] [place] [address] PCP - [facility]11/26/23Team MemberRelationshipSpecialtyStart DateEnd Date Funmi Kaplan MD [address] [place] [address] PCP - [facility]11/26/23Te MemberRelationshipSpecialtyEll[place] DateEnd Date Funmi Kaplan MD [address] [place] [address] PCP - [facility]11/26/23Te [facility]Relations[facility] DateEnd Date Funmi Kaplan MD [address], [place] [id number] PCP - [facility]11/26/23 Reason for Visit (unrecogniz ed section and content) ReasonCommentsMed Refill FOR RECORDS PERTAINING TO PATIENTS WHO [...] BE BASED ON THE PRIMARY CLINICAL RECORDS. [facility]. provides no warranty or guarantee of the accuracy or completeness of information in this document.
== END 2025-04-01 11:01 | disposition home or self-care (01) ==
LOC: SLEEP 04-02 12:34
DX: G47.39 Other sleep apnea (principal); G47.33 Obstructive sleep apnea (adult) (pediatric)
CPT/HCPCS: 95806

== ENCOUNTER 2025-04-24 17:11 | Emergency (ER) | payer MEDICAID, SELFPAY ==
--- OUTSIDE RECORDS SUMMARY | 2021-01-24 07:18 | XMS_ITS | Continuity of Care Document ---
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 [address] [place], [place], [address] [place] [address] , [place]. [phone] [facility] , [address] [place], [place], [address] [place] [address], tel:[phone] [facility] Dept Immunization No Information 1 Mike Garcia. [address] [place], [place], [id number] , [place]. tel:[phone] [facility] , [address] [place], [place], [id number], [place] tel:[phone] [facility] Dept Immunization No Information 1 Mike Garcia. [address] [place], [place], [id number] , [place]. tel:[phone] [facility] , [address] [place], [place], [address] [place] [address], [place] tel:[phone] [facility] Dept Immunization No Information Mike Garcia. [address], [place], [place], [id number] , . tel:[phone] Family History Family Member Type Diagnosis Age At Onset No Information Immunizations Vaccine Date Status Comments COVID-19, mRNA, LNP-S, PF, 3 0 mcg/0.3 mL dose administered Note: TPV40 ; Source : Other Registry Pfizer BioNTDanlan administered Note: TPV40 ; Source: New Immunization [...]
--- OUTSIDE RECORDS SUMMARY | 2025-01-19 10:45 | XMS_ITS ---
Author Organization [facility] vices Address [address] [place] [address] [phone] Care Team Providers Care Plater Production Name Role Phone Fiona Hwang Primary Care Provider Fay Whyte Unavailable [phone] REASON FOR VISIT Wellness Social History Sex Assigned At : Social History Observation Description Sex Assigned At Female Encounters Encounter Location Date Provider Diagnosis East [address] [place] [address] [id number] 01/19/2025 Fay Whyte Plan Of Treatment Next Appt Details Provider Name:Fay dickerson, 05/25/2025 01:15:00 PM, [address] [place] [address], [phone], Provider Name:Sofiya dickerson, 06/01/2025 01:45:00 PM, [address] [place] [address], [phone], Progress Notes * DOMITILA, BetinaDOB: 6 (49 yo F)Acc No.[id number]:01/19/2025 Patient:?Betina Ramesh :?Fay Whyte APRN, SEATER ASSEMBLER-CDOB:1975???Age: 49 Y???Sex:FemaleDate:01/19/2025Phone:[phone]:[address] [facility], [address], [place], [place]Dgt:Fiona Hwang Subjective: * Chief Complaints: * W ellness * Electronic signature of MICHELA Shae on 04/24/2025 at 05:48 PM EST Sign off status: Pending * Provider: Catrachita Whyte APRN, FNP-C Date: 0 01/19/2025 Generated for Printing/Faxing/eTransmitting on:?04/24/2025 05:48 PM EST
--- OUTSIDE RECORDS SUMMARY | 2025-02-24 08:30 | XMS_ITS ---
Author Organization [facility] vices Address [address] [place] [address] [phone] Care Team Providers Care Double End Sewer Name Role Phone Fiona Hwang Primary Care Provider Fay Whyte Unavailable [phone] Sofiya Doan Unavailable [phone] REASON FOR VISIT Wellness Social History Sex Assigned At : Social History Observation Description Sex Assigned At Female Encounters Encounter Location Date Provider Diagnosis [address] [phone] 02/24/2025 Sofiya Doan Plan Of Treatment Next Appt Details Provider Name:Fay dickerson, 05/25/2025 01:15:00 PM, [address] [place], [place], [phone], Provider Name:Sofiya dickerson, 06/01/2025 01:45:00 PM, [address] [place] [address], [phone], Progress Notes * DOMITILA BetinaDOB: 6 (49 yo F)Acc No.[id number]:02/24/2025 Medical Note Patient: Betina Loyd :CRISTELA DOAN-CNPDOB:1975???Age:49 Y ???Sex:FemaleDate:02/24/2025Phone:[phone]:[address] [facility], [address], [place]Qup:Fiona Hwang Subjective: * Chief Complaints: * W ellness * Electronic signature of JOHN Villafana on 04/24/2025 at 05:48 PM ESTSign off status: Pending * Provider: Radha [facility] Date: 0 02/24/2025 Generated for Printing/Faxing/eTransmitting on:?04/24/2025 05:48 PM EST
--- OUTSIDE RECORDS SUMMARY | 2025-03-02 09:45 | XMS_ITS ---
Author Organization [facility] vices Address [address] [place] [address] [phone] Care Team Providers Care Station Operator Name Role Phone Fiona Hwang Primary Care Provider Fay Whyte Unavailable [phone] REASON FOR VISIT sleep apnea Social History Sex Assigned At : Social History Observation Description Sex Assigned At Female Encounters Encounter Location Date Provider Diagnosis East [address] [place] [phone] 03/02/2025 Fay Whyte Plan Of Treatment Next Appt Details Provider Name:Fay dickerson, 05/25/2025 01:15:00 PM, [address] [place] [address], [phone], Provider Name:Sofiya dickerson, 06/01/2025 01:45:00 PM, [address] [place] [address], [phone], Progress Notes * IBRAHIMA, BetinaDOB: 6 (49 yo F)Acc No.[id number]:03/02/2025 Medical Note Patient: Mateo freitas Betina :?Fay Whyte APRN, VIDEO CONTROL ENGINEER-CDOB:1975???Age: 49 Y???Sex:FemaleDate:03/02/2025Phone:[phone]:[address] [facility], [address], [place], [place]Mir:Fiona Hwang Subjective: * Chief Complaints: * S leep apnea Billing Information: * Procedure Codes: * Electronic signature of MICHELA Shea on 04/24/2025 at 05:48 PM EST Sign off status: Pending * Provider: Catrachita Whyte APRN, FNP-C Date: Generated for Printing/Faxing/eTransmitting on:?04/24/2025 05:48 PM EST
--- OUTSIDE RECORDS SUMMARY | 2025-04-22 05:15 | XMS_ITS ---
Author Organization [facility] vice Address [address] [place] [phone] Care Team Providers Care Claims Sorter Name Role Phone Fiona Hwang Primary Care Provider Fay Whyte Unavailable [phone] Sofiya Jacobson Unavailable [phone] REASON FOR VISIT Rest #2-B Amalgam, #3-MO Social History Sex Assigned At : Social History Observation Description Sex Assigned At Female Encounters Encounter Location Date Provider Diagnosis [facility] [address] [place] [id number] 04/22/2025 Sofiya Jacobson [facility] K 02.62 Assessments Encounter Date Diagnosis (ICD Code) Assessment Notes Treatment Notes Treatment Clinical Notes Section Notes 04/22/2025 [facility] (ICD-10 - K02.6 2) Plan Of Treatment Next Appt Details Provider Name:Fay dickerson, 05/25/2025 01:15:00 PM, [address] [place], [place], [phone], Provider Name:Sofiya dickerson, 06/01/2025 01:45:00 PM, [address] [place] [address], [phone], Progress Notes * Betina RAMESHDOB: [birth year] (49 yo F)Acc No.[id number]:04/22/2025 Patient:?Betina Ramesh :?Sofiya Jacobson DDSDOB:1975???Age:49 Y ???Sex:FemaleDate:04/22/2025Phone:[phone]:[address] [facility], . [address], [id number]:Fiona Hwang Subjective: * Chief Complaints: * R est #2-B Amalgam, #3-MO Objective: * Dental Examination/Plan : * Tooth / Surface Status Description Provider Date 4 MOD TP RESIN-BASED COMPOSITE - THREE SURFAC ES; POSTERIOR CJ 04/22/2025 Assessment: * Assessment: 1.?[facility] - K02.62 (Primary)??? Billing Information: * Procedure Codes: * Electronic signature of Sofiya Jacobson DDS on 04/24/2025 at 05:48 PM ESTSign off status: Pending * Provider: Milad Jacobson DDS Date: 06/22/2024 Generated for Printing/Faxing/eTransmitting on:?04/24/2025 05:48 PM EST
[2025-04-24 17:15] VITALS: BP 143/111; PULSE 79; TEMP 36.6; O2SAT 100; BMI 50.5
--- NOTE | 2025-04-24 17:33 | ED.GENADUL1 ---
HPI HPI - General Adult General Chief complaint: Upper Respiratory Infection Stated complaint: COUGH Time Seen by Provider: 04/24/25 17:23 Source: patient Mode of arrival: walk-in Limitations: no limitations History of Present Illness HPI narrative: Patient is a 49-year-old female that presents with complaints of cough and nasal congestion x 1 week. She denies fever, night sweats, or chills at home. She denies any wheezing or shortness of breath. She states she has taken 2 COVID test at home that have been negative. She notes that her symptoms have not been that bad but last night she had a hard time sleeping and was throwing up from coughing so hard. Other than that she denies any chest pain, nausea, vomiting, or diarrhea. Related Data Home Medications ?Medication ?Instructions ?Recorded ?Confirmed amlodipine 5 mg tablet 5 mg PO DAILY 01/02/23 02/19/24 cyclobenzaprine 10 mg tablet 10 mg PO Q12H 01/02/23 01/02/23 hydrochlorothiazide 25 mg tablet 25 mg PO DAILY 01/02/23 02/19/24 metformin 850 mg tablet 850 mg PO BID 01/02/23 02/19/24 atorvastatin 10 mg tablet 10 mg PO DAILY 02/19/24 02/19/24 Previous Rx's ?Medication ?Instructions ?Recorded amoxicillin 875 mg-potassium 1 tab PO BID #14 tabs 02/19/24 clavulanate 125 mg tablet ibuprofen 600 mg tablet 600 mg PO QID PRN pain #20 tabs 02/19/24 phenazopyridine 200 mg tablet 200 mg PO Q8H 2 days #6 tabs 02/19/24 (Pyridium) sulfacetamide sodium 10 % eye drops 2 drp ophthalmic (eye) Q4H 7 days 10/10/24 #15 mL benzonatate 100 mg capsule 100 mg PO TID PRN cough 7 days #21 04/24/25 caps benzonatate 100 mg capsule 100 mg PO TID PRN cough 7 days #21 04/24/25 caps prednisone 50 mg tablet 50 mg PO DAILY 3 days #3 tabs 04/24/25 Allergies Allergy/AdvReac Type Severity Reaction Status Date / Time No Known Drug Allergies Allergy Verified 10/10/24 16:14 Opioid HPI Opioid Management Most Recent Opioid Data: Last Pain Scale 10 01/03/23, 00:50 Review of Systems ROS Status of ROS 10 or more systems reviewed and unremarkable except as noted in history and below [facility] Social History Smoking status: Former smoker Little interest or pleasure in doing things: not at all Feeling down, depressed, or hopeless: not at all Exam Narrative Exam Narrative: General: No distress, age-appropriate Skin: Warm, dry, no pallor. No rash. Head: Normocephalic, atraumatic. Neck: Supple, non-tender. Eye: Pupils are equal, round and EOMI. No scleral icterus. Ears, Nose, Mouth, and Throat: No nasal mucosal hypertrophy. Oral mucosa is moist, no posterior oropharynx erythema, uvula is mid-line Cardiovascular: Regular Rate and Rhythm without murmur, gallop or rub. Respiratory: No accessory muscle use or respiratory distress. Lungs are clear to auscultation, no wheezing, rales or rhonchi Chest Wall: no tenderness Musculoskeletal: Full ROM of all extremities, no calf or popliteal tenderness Neurological: A&O x4. No cranial nerve dysfunction observed. No truncal ataxia. Moves all extremities. Sensation intact. Psychiatric: Cooperative and interactive. Normal mood and affect. Constitutional Vital Signs, click to edit/add: Last Vital Signs Temp 97.8 F 04/24/25 17:15 Pulse 79 04/24/25 17:15 Resp 18 04/24/25 17:15 BP 143/111 H 04/24/25 17:15 Pulse Ox 100 04/24/25 17:15 O2 Del Method Room Air 04/24/25 17:15 Documenting provider has reviewed patient's vital signs: yes Course Vital Signs Vital signs: Vital Signs Temperature 97.8 F 04/24/25 17:15 Pulse Rate 79 04/24/25 17:15 Respiratory Rate 18 04/24/25 17:15 Blood Pressure 143/111 H 04/24/25 17:15 Pulse Oximetry 100 04/24/25 17:15 Oxygen Delivery Method Room Air 04/24/25 17:15 Temperature 97.8 F 04/24/25 17:15 Pulse Rate 79 04/24/25 17:15 Respiratory Rate 18 04/24/25 17:15 Blood Pressure 143/111 H 04/24/25 17:15 Pulse Oximetry 100 04/24/25 17:15 Oxygen Delivery Method Room Air 04/24/25 17:15 Medical Decision Making [facility] Narrative Medical decision making narrative: The patient is a 49-year-old female presenting with a 1-week history of cough and nasal congestion without fever, shortness of breath, or other systemic symptoms. She has experienced cough-induced emesis, but vital signs are stable, and pulmonary exam revealed no wheezing, rales, or rhonchi. Given the absence of lower respiratory tract findings, hypoxia, or systemic illness, her presentation is most consistent with a viral upper respiratory infection with post-viral cough. She was treated symptomatically with Tessalon Perles (benzonatate) for cough suppression and a 3-day course of prednisone 50 mg daily to reduce airway inflammation and improve cough tolerance, particularly to alleviate sleep disturbance and vomiting episodes. No imaging or laboratory studies were indicated given her stable presentation and clear lung exam. She was counseled on supportive care measures, hydration, and return precautions for fever, shortness of breath, or worsening symptoms. Differential Diagnosis Differential Diagnosis: Viral URI, COVID, influenza Discharge Plan Discharge Chief Complaint: Upper Respiratory Infection Clinical Impression: Acute upper respiratory infection Patient Disposition: Home, Self-Care Time of Disposition Decision: 17:37 Condition: Good Mode of Transportation: Private Vehicle Prescriptions / Home Meds: New benzonatate 100 mg capsule 100 mg PO TID PRN (Reason: cough) 7 Days Qty: 21 0RF prednisone 50 mg tablet 50 mg PO DAILY 3 Days Qty: 3 0RF benzonatate 100 mg capsule 100 mg PO TID PRN (Reason: cough) 7 Days Qty: 21 0RF No Action amlodipine 5 mg tablet 5 mg PO DAILY cyclobenzaprine 10 mg tablet 10 mg PO Q12H hydrochlorothiazide 25 mg tablet 25 mg PO DAILY metformin 850 mg tablet 850 mg PO BID atorvastatin 10 mg tablet 10 mg PO DAILY phenazopyridine [Pyridium] 200 mg tablet 200 mg PO Q8H 2 Days Qty: 6 0RF ibuprofen 600 mg tablet 600 mg PO QID PRN (Reason: pain) Qty: 20 0RF amoxicillin-pot clavulanate 875-125 mg tablet 1 tab PO BID Qty: 14 0RF sulfacetamide sodium 10 % drops 2 drp ophthalmic (eye) Q4H 7 Days Qty: 15 0RF Print Language: Occitan Instructions: Upper Respiratory Infection (ED) Referrals: ALBARO MARIA [Primary Care Provider] - 1 week Discharge Date/Time: 04/24/25 17:59
--- OUTSIDE RECORDS SUMMARY | 2025-04-24 17:48 | XMS_ITS | CCD ---
Author Organization [facility] Care Team Providers Care Brand Executive Name Role Phone [facility] Attending Unavailable [facility] Consulting Unavailable [facility] Admitting Unavailable ECHO ACHARYA Attending Unavailab le JAMIE, ECHO Granado Referring Unavailab LNARE Veras Attending Unavailable ACHARYA, ECHO Granado Referring Unavailab le BRARCELIA LIU Attending Unavailable ACHARYA, ECHO Granado Referring Unavailab gloria GIORDANO, ARCELIA Attending Unavailable ACHARYA, ECHO Granado Referring Unavailab le BRARCELIA LIU Attending Unavailable ACHARYA, ECHO Granado Referring Unavailab gloria Kaplan MD, [facility] Primary Care Provider ALBARO MARIA Referring Unavailable SERVICES, [facility] Primary Care Unava ilable Medications Current Medications MedicationDrug Class(es)DatesSig (Normalized)Sig (Original)amLODIPine 5 mg oral tablet (8 sources)Dihydropyridine Calcium Channel BlockerStart: 35-33-4041tvgn 1 tablet by mouth once dailyamLODIPine (Norvasc) 5 MG tablet Indications: Essential hypertension (CMS/HCC) TAKE 1 TABLET BY MOUTH DAILY 90 tablet 09/30/2024 Active Start: 09-11-2024 End: 49-65-8371mxdf 1 tablet by mouth once dailyamLODIPine (Norvasc) 5 MG tablet Indications: Essential hypertension (CMS/HCC) Take 1 tablet (5 mg)by mouth Daily 90 tablet 09/11/2024 09/30/2024 Discontinuedatorvastatin 10 mg oral tablet (7 sources)HMG-CoA Reductase InhibitorStart: 89-03-6861lrjw 1 tablet by mouth once dailyatorvastatin (Lipitor) 10 MG tablet Indications: Mixed hyperlipidemia (CMS/HCC) Take 1 tablet (10 mg) by mouth Daily 90 tablet 09/11/2024 ActiveStart: 12-01-2023 End: 18-85-0665pllk 1 tablet by mouth once dailyatorvastatin (Lipitor) 10 MG tablet Indications: Mixed hyperlipidemia (CMS/HCC) Take 1 tablet (10 mg) by mouth Daily 90 tablet 3 12/01/2023 09/11/2024 Discontinued (Reorder) hydroCHLOROthiazide 25 mg oral tablet (8 sources)Thiazide DiureticStart: 86-13-5685xlkk 1 tablet by mouth in the morninghydroCHLOROthiazide (HYDRODiuril) 25 MG tablet Indications: Essential hypertension (CMS/HCC) Take 1tablet (25 mg) by mouth in the morning. 90 tablet 09/11/2024 ActiveStart: 06-24-2024 End: 88-26-3571echx 1 tablet by mouth in the morninghydroCHLOROthiazide (HYDRODiuril) 25 MG tablet Indications: Essential hypertension (CMS/HCC) TAKE 1 TABLET BY MOUTH IN THE MORNING 90 tablet 06/24/2024 09/11/2024 Discontinued (Reorder)Start: 03-11-2024 End: 68-38-5633uosx 1 tablet by mouth in the morninghydroCHLOROthiazide (HYDRODiuril) 25 MG tablet Indications: Essential hypertension (CMS/HCC) Take 1 tablet (25 mg) by mouth in the morning. 90 tablet 03/11/2024 Activetake 1 tablet by mouth in the morninghydroCHLOROthiazide (HYDRODiuril) 25 MG tablet Take 25 mg by mouth in the morning. ActivemetFORMIN hydrochloride 850 mg oral tablet (7 sources)BiguanideStart: 02-21-2024 End: 45-11-2355nmuk 1 tablet by mouth in the morningmetFORMIN (Glucophage) 850 MG tablet Indications: Type 2 diabetes mellitus without complication, without long-term current use of insulin Take 1 tablet (850 mg) by mouth in the morning and 1 tablet (850 mg) in the evening. Take with meals. 180 tablet 3 02/21/2024 Activenaproxen 375 mg oral tablet (6 sources)Nonsteroidal Anti-inflammatory DrugStart: 46-79-9367gmga 1 tablet by mouth once daily in [...] Translations: [Type 2 diabetes mellitus without complications]Onset: 752875-48-6111EijucswXjbwvxmmc of lipid metabolism (8 sources)Hypertriglyceridemia; Translations: [Pure hyperglyceridemia]Onset: 433256-83-6351UcdewjoJzpfjgambd disorders (7 sources)Gastroesophageal reflux disease; Translations: [Gastro-esophageal reflux disease without esophagitis]Onset: 237226-93-3601UfuexhkKprlrctlf hypertension (15 sources)Essential hypertension; Translations: [Essential (primary) hypertension]Onset: 02-05-2018 Resolved: 024731-17-9500BawpwmuXqhqrspbjdcpi and screening for infectious disease (4 sources)Contact with and (suspected) exposure to other viral communicable diseases; Translations: [CONTCT EXPS OTH VIRL COMMUNICABL DZ]Onset: 05-17-2020 EpisodicNutritional deficiencies (6 sources)Vitamin D deficiency; Translations: [Vitamin D deficiency, unspecified]Onset: 102984-21-0245YlhnesnOsvixtouasepmp (6 sources)Arthritis; Translations: [Unspecified osteoarthritis, unspecified site]57-71-1403AwsxktcIksqg nutritional; endocrine; and metabolic disorders (6 sources)Obesity caused by energy imbalance; Translations: [Other obesity due to excess calories]Onset: 013759-17-3038QzplrrsHomuqvaqlee; intervertebral disc disorders; other back problems (6 sources)Cervical arthritis; Translations: [Spondylosis without myelopathy or radiculopathy, cervical region]Onset: 386888-21-0847Dcogqxn Past or Other Problems Problem ClassificationProblemDateDocumented DateEpisodic/ChronicSpondylosis; intervertebral disc disorders; other back problems (6 sources)Neck pain; Translations: [Cervicalgia]Onset: 047939-81-4197 Episodic Results Test NameValueInterpretationReference RangeFacilityCBC WITH AUTO DIFFERENTIALon 33-08-7534TRUOTKGVZ ABSOLUTE COUNT (10*3/UL) BY AUTOMATED COUNT0.1 10*3/uLNormal 0.0-0.2PMemorial HospitalComment on above:Performed By: #### CBCA #### [facility] [address] [place] [address] VIRBASOPHILS RELATIVE PERCENT BY AUTOMATED COUNT0.8 %Normal [facility]. [facility] HospitalComment on above:Performed By: #### CBCA #### [facility] [address] [place] [address] VIRCELLAVISION DIFFERENTIAL TYPEAUTOMATED DIFFERENTIALNormal St. [facility] HospitalComment on above:Performed By: #### CBCA #### [facility] [address] [place] [address] VIREosinophils (Bld) [#/Vol]0.4 10*3/uLNormal0.0-0.4St. [facility] HospitalComment on above:Performed By: #### CBCA #### [facility] [address] [place] [address] VIREOSINOPHILS RELATIVE PERCENT BY AUTOMATED COUNT4.7 %Normal [facility] HospitalComment on above:Performed By: #### CBCA #### [facility] [address] [place] [address] VIRErythrocyte distribution width (RBC) [Ratio]14.1 %Normal 11.5-15St. [facility] HospitalComment on above:Performed By: #### CBCA #### [facility] [address] [place] [address] VIRHematocrit (Bld) [Volume fraction]37.8 %Cjxyzc58-11BphIlcglbTexas Health Harris Methodist Hospital AzleComment on above:Performed By: #### CBCA #### [facility] [address] [place] [address] VIRHemoglobin (Bld) [Mass/Vol]12.5 g/eYLkokyd25.7-15.5PMemorial HospitalComment on above:Performed By: #### CBCA #### [facility] [address] [place] [address] VIRLYMPHOCYTES ABSOLUTE COUNT (10*3/UL) BY AUTOMATED COUNT1.7 10*3/uLNormal1.0-3.5PMemorial HospitalComment on above:Performed By: #### CBCA #### [facility] [address] [place] [address] VIRLYMPHOCYTES RELATIVE PERCENT BY AUTOMATED COUNT23.0 %Normal St. Francis HospitalComment on above:Performed By: #### CBCA #### [facility] [address] [place] [address] VIRMCH (RBC) [Entitic mass]27.8 dxJrizuo57-20NghSxbcviSt. Francis HospitalComment on above:Performed By: #### CBCA #### [facility] [address] [place] [address] VIRMCHC (RBC) [Mass/Vol]33.0 g/sDJeekif97-89QhxIfhuqgTexas Health Harris Methodist Hospital AzleComment on above:Performed By: #### CBCA #### [facility] [address] [place] [address] VIRMCV (RBC) [Entitic vol]84 vGLbhbcg72-039YpaFphsmi [facility]ont HospitalComment on above:Performed By: #### CBCA #### [facility] [address] [place] [address] VIRMONOCYTES ABSOLUTE COUNT (10*3/UL) BY AUTOMATED COUNT0.5 10*3/uLNormal0.0-0.9St. Francis HospitalComment on above:Performed By: #### CBCA #### [facility] [address] [place] [address] VIRMONOCYTES RELATIVE PERCENT BY AUTOMATED COUNT6.5 %Normal [facility] Francis HospitalComment on above:Performed By: #### CBCA #### [facility] [address] [place] [address] VIRNEUTROPHILS ABSOLUTE COUNT BY AUTOMATED COUNT4.8 10*3/uL Normal1.5-6.6St. Francis HospitalComment on above:Performed By: #### CBCA #### [facility] [address] [place] [address] VIRNEUTROPHILS RELATIVE PERCENT BY AUTOMATED COUNT65.0 %Normal [facility]. Francis HospitalComment on above:Performed By: #### CBCA #### [facility] [address] [place] [address] VIRPlatelet mean volume (Bld) [Entitic vol]9.[address]7-12 [address] [facility] HospitalComment on above:Performed By: #### CBCA #### [facility] [address] [place] [address] VIRPlatelets (Bld) [#/Vol]254 10*3/iVOnwcee661-615PjtHlhgtt [facility] HospitalComment on above:Performed By: #### CBCA #### [facility] [address] [place] [address] VIRRBC COUNT4.49 X10E12/LNormal3.8-5.2PMemorial HospitalComment on above:Performed By: #### CBCA #### [facility] [address] [place] [address] VIRWBC (Bld) [#/Vol]7.4 10*3/uLNormal4-11St. [facility] HospitalComment on above:Performed By: #### CBCA #### [facility] [address] [place] [address] VIRCOMPREHENSIVE METABOLIC PANELon 04-74-5069Vxrvwhj [Mass/Vol] 4.0 g/dLNormal3.2-5.3PMemorial HospitalComment on above:Performed By: #### CMP #### [facility] [address] [place] [address] VIRALP [Catalytic activity/Vol]83 U/GMykgmt85-312ZwiUvztddTexas Health Harris Methodist Hospital AzleComment on above:Performed By: #### CMP #### [facility] [address] [place] [address] VIRALT [Catalytic activity/Vol]12 U/LNormal<=31PMemorial HospitalComment on above:Performed By: #### CMP #### [facility] [address] [place] [address] VIRAnion gap [Moles/Vol]9 mmol/LNormal5-15ProTexas Health Harris Methodist Hospital AzleComment on above:Performed By: #### CMP #### [facility] [address] [place] [address] VIRAST [Catalytic activity/Vol]27 U/LNormal<=41ProTexas Health Harris Methodist Hospital AzleComment on above:Performed By: #### CMP #### [facility] [address] [place] [address] VIRBilirubin [Mass/Vol]0.8 mg/dLNormal0.3-1.2PMemorial HospitalComment on above:Performed By: #### CMP #### [facility] [address] [place] [address] VIRCalcium [Mass/Vol]9.0 mg/dLNormal8.5-10.5PMemorial HospitalComment on above:Performed By: #### CMP #### [facility] [address] [place] [address] VIRChloride [Moles/Vol]107 mmol/MUnqwas55-260LczNwnpbfTexas Health Harris Methodist Hospital AzleComment on above:Performed By: #### CMP #### [facility] [address] [place] [address] VIRCO2 [Moles/Vol]27 mmol/DVqdpgc80-90EtqHwrpnfMemorial HospitalComment on above:Performed By: #### CMP #### [facility] [address] [place] [address] VIRCreatinine [Mass/Vol]0.67 mg/dLNormal0.40-1.00ProTexas Health Harris Methodist Hospital AzleComment on above:Result Comment: METHOD TRACEABLE TO IDMS STANDARDPerformed By: #### CMP #### [facility] [address] [place] [address] VIREGFR (CKD-EPI) NON-RACE DEPENDENT>^90Normal>=60ProTexas Health Harris Methodist Hospital AzleComment on above:Result Comment: Reported eGFR is based on the CKD-EPI 2021 equation that does not use a race coefficient. EGFR not calculated due to patient's gender not being defined.Performed By: #### CMP #### [facility] [address] [place] [address] VIRGlucose [Mass/Vol]107 mg/xERwje70-54XhnNxbcugTexas Health Harris Methodist Hospital AzleComment on above:Performed By: #### CMP #### [facility] [address] [place] [address] VIRPotassium [Moles/Vol]4.0 mmol/LNormal3.5-5.0ProTexas Health Harris Methodist Hospital AzleComment on above:Performed By: #### CMP #### [facility] [address] [place] [address] VIRProtein [Mass/Vol]7.0 g/dLNormal6.0-8.0St. Francis HospitalComment on above:Performed By: #### CMP #### [facility] [address] [place] [address] VIRSodium [Moles/Vol]143 mmol/ANvqymj331-891JnoZldgxx [facility]remont HospitalComment on above:Performed By: #### CMP #### [facility] [address] [place] [address] VIRUrea nitrogen [Mass/Vol]14 mg/dLNormal5-23ProTexas Health Harris Methodist Hospital AzleComment on above:Performed By: #### CMP #### [facility] [address] [place] [address] VIRHEMOGLOBIN A1Con 55-52-5846Tdxbuyh [Mass/Vol]157 mg/dLNormal St. Francis HospitalComment on above:Performed By: #### HA1C #### [facility] [address] [address] [place] [address] MGSXdZ8l (Bld) [Mass fraction]7.1 %High4.4-5.6St. Francis HospitalComment on above:Result Comment: ADA Guidelines Result HgbA1c Normal : less than 5.7 % Prediabetes : 5.7 % to 6.4 % Diabetes : > 6.4 % Use with caution in patients with abnormal hemoglobin variants as the half-life of red blood cells and in vivo glycation rates are affected.Performed By: #### HA1C #### [facility] [address] [place] [address] VIRLIPID PROFILEon 05-39-8286Whivrxinifv [Mass/Vol]148 mg/dLLow 150-200ProTexas Health Harris Methodist Hospital AzleComment on above:Performed By: #### LIPR #### [facility] [address] [place] [address] VIRCholesterol in HDL [Mass/Vol]39 mg/dLLow>39St. Francis HospitalComment on above:Result Comment: HDL <40 mg/dL - High Risk HDL > or = 40mg/dL- Desirable HDL >60 mg/dL - Negative RiskPerformed By: #### LIPR #### [facility] [address] [place] [address] VIRCholesterol in LDL [Mass/Vol]77 mg/dLNormal<130ProTexas Health Harris Methodist Hospital AzleComment on above:Result Comment: LDL <100 mg/dL - Desirable LDL >160 mg/dL - High RiskPerformed By: #### LIPR #### [facility] [address] [place] [address] VIRCHOLESTEROL:HDL3.7Dobdcl8.0-5.0[facility] Comment on above:Performed By: #### LIPR #### [facility] [address] [place] [address] VIRTriglyceride [Mass/Vol]158 mg/uLCnjy33-022BapRjqlvpTexas Health Harris Methodist Hospital AzleComment on above:Performed By: #### LIPR #### [facility] [address] [place] [address] VIRVERY LOW DBDGRQCQUDM47 mg/dLHigh0-30ProTexas Health Harris Methodist Hospital AzleComment on above:Performed By: #### LIPR #### [facility] [address] [place] [address] VIRXR CERVICAL SPINE AP/LAT/FLEX/EXTon 29-37-8220EL CERVICAL SPINE AP/LAT/FLEX/EXTFINDINGS: Cervical vertebral bodies are [...] ELECTRONICALLY SIGNED BY: Onel Lora AvailableCovid-19 PCR ([facility]WIN[facility])on 75-41-7044Knvxs-19 PCRNOT DETECTEDNormalNOT DETECTEDMercy Health Tiffin Hospital on above:Result Comment: This test is not yet approved or cleared by the [place] FDA. When there are no FDA-approved or cleared tests available, and other criteria are met, FDA can make tests available under an emergency access mechanism called an Emergency Use Authorization (EUA). The EUA for this test is supported by the Process Architect of Health and Human Service's (HHS's) declaration [...] no longer be used). Performed By: #### [facility]WIN[facility] #### [facility] [address] [place] [address] Olivia Correa [facility] on above: Result Comment: This test is not yet approved or cleared by the [place] FDA. When there are no FDA-approved or cleared tests available, and other criteria are met, FDA can make tests available under an emergency access mechanism called an Emergency Use Authorization (EUA). The EUA for this test is supported by the Process Architect of Health and Human Service?s (HHS?s) declaration [...] consistent with SARS-CoV-2.Performed By: #### CVDTBH #### [facility] [address] [place], [place] [address] Olivia Thomas Encounters Encounter DateEncounter TypeCare ProviderFacilityStart: 73-64-9164hbpqjtjpqr ALBARO [facility]tart[facility] 09-30-2024 End: 53-79-1073MpnruePglerwgb A [place] [employer] Work Phone: [facility] FNR FMComment on above:Essential hypertension (CMS/HCC)Start: 09-11-2024 End: 71-74-8811McwkhsJipusixj Hohman MD Work Phone: noms FNR FMComment on above:Essential hypertension (CMS/HCC); Mixed hyperlipidemia (CMS/HCC)Start: 03-11-2024 End: 79-04-9931Zbbncpgbw encounterChristy Catrachita Acharya [employer] Work Phone: [facility] FNR FMComment on above:Essential hypertension (CMS/HCC) (Primary Dx)Start: 02-21-2024 End: 50-27-1361Pgfgff OnlyChristy Catrachita Acharya [employer] Work Phone: [facility] FNR FMComment on above:Type 2 diabetes mellitus without complication, without long-term current use of insulin (CMS/HCC) (P rimary Dx)Start: 02-11-2024 End: 53-94-1743Zenwzxzzn encounterFunmi Kaplan MD Work Phone: [facility] F[facility] FMStart: 12-10-2023 End: 29-54-6175gfrhawkyjnLHZEZOYF BRINKNot AvailableStart: 12-03-2023 End: 19-66-1393zverdmnjqtYNADGSWT BRINKNot AvailableStart: 11-23-2023 End: 98-63-2512pphrlcylasBOHVURUZ BRINKNot AvailableStart: 11-21-2023 End: 10-60-3545uokxavrdeeOTXJZO T BLACKSTONNot AvailableStart: 11-12-2023 End: 51-06-2566qrraqrimzgZEFOGOS A FITZPATRICKNot AvailableStart: 05-17-2020 End: 22-24-5538Uwdynng encounter procedureHE[facility] Facility:H1 Procedures DateProcedureProcedure DetailPerforming ClinicianStart: 51-02-9394Sldvvumtsgp Funmi Kaplan MD Work Phone: Plan of Treatment DateCare ActivityDetailAuthorStart: 98-94-4420Fznyjcjk screeningDiabetes: Retinopathy ScreeningNOSD HealthcareStart: 46-27-4044Pyuslhbdi vaccination Influenza Vaccine (Season Ended)[facility] HealthcareStart: 47-52-9191Kjdqx screening for proteinDiabetes: Urine Protein ScreeningCEDAR CITY HOSPITAL HealthcareStart: 02-12-2024 Hemoglobin A1c measurementDiabetes: Hemoglobin U5PABXN HealthcareStart: 04-89-2597Fzmwnogph vaccinationInfluenza Vaccine (#1)[facility] HealthcareStart: 00-72-5719Uquhwmepc for malignant neoplasm of breastMammogramNOMS Healthcare Start: 63-47-7502Vgqkthupa for malignant neoplasm of cervixNOMS HealthcareStart: 60-08-3351Jnfkwyktk for malignant neoplasm of cervixPap SmearNOMS Healthcare Start: 27-41-4155Gxltw screening for proteinDiabetes: Urine Protein Screening [facility] HealthcareStart: 98-43-0410Pqpicqgwv for malignant neoplasm of colonNOMS Healthcare Immunizations Immunization DateImmunizationNotesCare QhnmffheFohvvekv20-24-4137zlqcsanwx virus vaccine, unspecified formulationFunmi Kaplan MD Work Phone: [facility] Payers DatePayer CategoryPayerPolicy [id number] Health InsuranceAMBETTER MAYELIN Member Subscriber Plan / Payer (Effective 2023-Present) Name: Praveena Alexandra Relation to Subscriber: Self Name: Praveena Alexandra Payer ID: Not on file Group ID: Not on file Type: Not on file Address: [address] [id number] [employer] [id number] 2023-Present [phone] [address] [place] [address] [id number] 2.16.840.1.900173.3.57[id number] 2.16.840.1.272416.3.57[id number] 2.16.840.1.193921.3.57[id number] 2.16.840.1.564662.3.57[id number] 2.16.840.1.597909.3.57[id number] 2.16.840.1.393509.3.57[id number] 2.16.840.1.016168.3.579.2.055465-41-6052Uzgq-[id number] Social History DateTypeDetailFacilityStart: 63-08-1875Rgpnkks smoking status NHISEx-smokerNOMS HealthcareHistory of tobacco useCurrent smokerNOMS HealthcareHistory of tobacco useCigarette SmokerNOMS HealthcareStart: 76-08-7524Rpkluqr use and exposure Former smokeless tobacco userNOMS HealthcareStart: 94-58-1560Unqsmvbuv beverage intakeCurrent drinker of alcohol (finding)[facility] HealthcareStart: 11-12-2023 History of Social functionNOMS HealthcareStart: 70-83-2300Qlcjhjb use panelNOMS HealthcareStart: 39-32-3869Sfhpflc Commentonquintin granado [facility] [place]: 37-16-2944Qxn assigned at birthNot on [facility] Clinical Notes 02-11-2024 to 09-11-2024 Note Date & SjebLkgmEsvrarhx86-19-8055 Telephone encounter Note* Telephone Encounter - Eileen Solomon - 09/11/2024 9:30 AM EDT Pt has not been seen since 11/12/2023 as a new patient, and has canceled all appointment since then.She states she has no insurance and cannot afford to come in for an appt. She wants this practice to discount her visits or work with her budget. [facility] HospitalSjyapggpxy61-67-2425 Miscellaneous Notes* Telephone Encounter - Eileen Solomon - 09/11/2024 9:30 AM EDT Pt has not been seen since 11/12/2023 as a new patient, and has canceled all appointment since then.She states she has no insurance and cannot afford to come in for an appt. She wants this practice to discount her visits or work with her budget. documented in this [facility]10-15-2024 History of Present illness Narrative* Echo Acharya NP - 03/11/2024 2:19 PM EDT Prescription sent documented in this [facility]10-15-2024 Telephone encounter Note* Telephone Encounter - Katt Powell - 03/11/2024 1:55 PM EDT Patient called lvm @ 1:52pm needing prescription order hydrochlorothiazide 25mg sent to [facility] [place]. Pt has no refills left on medication. Thank you [place] [id number] Miscellaneous Notes* Telephone Encounter - Katt Powell - 03/11/2024 1:55 PM EDT Patient called lvm @ 1:52pm needing prescription order hydrochlorothiazide 25mg sent to [facility]. Pt has no refills left on medication. Thank you documented in this encounterSalem Memorial District HospitalDiopkmolgd03-15-9261 History of Present illness Narrative* Echo Acharya NP - 02/21/2024 12:18 PM EDT Orders sent documented in this encounterSalem Memorial District HospitalJsavhebfih31-14-0334 Telephone encounter Note* Telephone Encounter - Farheen [...] full. I left voice message for patient. [facility] HospitalKxivuundcq91-84-1143 Miscellaneous Notes* Telephone Encounter - Farheen Wall [...] voice message for patient. documented in this encounterNOSD HealthcareEvaluation note* Diagnosis Essential hypertension (CMS/HCC)- Primary Unspecified essential hypertension documented in this encounter [facility] HealthcareEvaluation note* Diagnosis Type 2 diabetes mellitus without complication, without long-term current use of insulin (CMS/HCC)- Primary documented in this encounter [facility] HealthcareEvaluation note* Diagnosis Essential hypertension (CMS/HCC) Unspecified essential hypertension Mixed hyperlipidemia (CMS/HCC) Mixed hyperlipidemia documented in this encounter [facility] HealthcareEvaluation note* Diagnosis Essential hypertension (CMS/HCC) Unspecified essential hypertension documented in this encounter [facility] Healthcare Summary Purpose Family History No Family History Records FoundNo Family History Records FoundNo Family History Records Found Advance Directives No Advanced Directives Records FoundNo Advanced Directives Records FoundNo Advanced Directives Records Found Additional Source Comments INFORMATION SOURCE (unrecogn ized section and content) DATE CREATED AUTHOR 05/27/2020 [facility] DATE CREATED AUTHOR AUTHOR'S ORGANIZ ATION 12/10/2023 [facility] DATE CREATED AUTHOR AUTHOR'S ORGANIZ ATION 01/22/2025 [facility] Care Teams (unrecognized sec tion and content) Team MemberRelationshipSpecialtyStart DateEnd Date Funmi Kaplan MD [address] [place] [address] PCP - [facility]11/26/23Team MemberRelationshipSpecialtyStart DateEnd Date Funmi Kaplan MD [address] [place] [address] PCP - [facility]11/26/23Team MemberRelationshipSpecialtyStart DateEnd Date Funmi Kaplan MD [address] [place] [address] PCP - [facility]11/26/23Team MemberRelationshipSpecialtyStart DateEnd Date Funmi Kaplan MD [address] [place] [address] PCP - [facility]11/26/23Te MemberRelationshipSpecialtyWinona DateEnd Date Funmi Kaplan MD [address] [place] [address] PCP - [facility]11/26/23Te [facility]Relations[facility] DateEnd Date Funmi Kaplan MD [address], [place] [id number] PCP - [facility]11/26/23 Reason for Visit (unrecogniz ed [...] BE BASED ON THE PRIMARY CLINICAL RECORDS. [facility] [employer] [facility]. provides no warranty or guarantee of the accuracy or completeness of information in this document.
--- OUTSIDE RECORDS SUMMARY | 2025-04-24 17:48 | XMS_ITS | Clinical Summary ---
Author Organization [facility] Address [address], [address] [place] [address] Care Team Providers Care Roll Operator Name Role Phone Unavailable Primary Care Provider [...] InformationValueDate RecordedSex Assigned at BirthNot on fileLegal QeeEceoks15/10/2013 11:03 AM ESTGender IdentityNot on fileSexual OrientationNot on file Last Filed Vital Signs Vital SignReadingTime TakenCommentsBlood Wdjaumxl560/7406/20/2012 11:14 AM EST Bzxcw449306/20/2012 11:14 AM OOFLsmbuoibbkq89.2 ??C (97.1 ??F)06/20/2012 11:14 AM ESTRespiratory Riaq336206/20/2012 11:14 AM ESTOxygen Saturation--Inhaled Oxygen Concentration--Ajghfd547.6 kg (299 lb)06/20/2012 11:14 AM BANUakxyf961.5 cm (5' 2 )06/20/2012 11:14 AM ESTBody Mass Index54.69006/20/2012 11:14 AM EST Plan of Treatment Not on file
--- OUTSIDE RECORDS SUMMARY | 2025-04-24 17:49 | XMS_ITS | Clinical Summary ---
Author Organization [facility] tem Address [id number] [place] [address] Care Team Providers Care Hoof Trimmer Name Role Phone Services, [facility] Primary Care Provider Allergies No known active [...] with meals.Active Active Problems ProblemNoted DateDiagnosed DateEssential utqvttyickoo45/11/2018 Overview (02/05/2018): Takes medications prescribed per Katt nAgel or Dr. Joseph Bleeding after /11/2018Obesity due to excess /11/2018 Family History Medical HistoryRelationNameCommentsDiabetesFatherHypertensionFatherColon cancer Maternal AuntHeart attackMaternal GrandfatherHeart attackSisterBreast cancerNeg HxRelationNameStatusCommentsFatherMaternal AuntMaternal GrandfatherSister Social History Tobacco UseTypesPacks/DayYears UsedDateSmoking Tobacco: FormerCigarettes Smokeless Tobacco: NeverAlcohol UseStandard Drinks/WeekCommentsYes0 (1 standard drink = 0.6 oz pure alcohol)rareChildcareAnswerDate RecordedChildcareUnknown 11/06/2018EmploymentAnswerDate NdvcexunCakzihzxpoMkkyszv47/12/2019Hunger ScreeningAnswerDate RecordedWithin the past 12 months we worried whether our food would run out before we got money to buy more.Never True12/19/2022Within the past 12 months the food we bought just didn't last and we didn't have money to get more.Never True3Purpose - LifeAnswerDate RecordedPurpose and direction in sjlsUfilfdr70/08/2021CommentsNoSex and Gender Information ValueDate RecordedSex Assigned at BirthNot on fileLegal KwiVhbwjl33/06/2015 11:35 AM EDTGender IdentityNot on fileSexual OrientationNot on file Last Filed Vital Signs Vital SignReadingTime TakenCommentsBlood Abjlmpha892/11582 6:18 PM EDT Anpgc534612/19/2022 6:18 PM CUNMpnmugskvve28.8 ??C (98.3 ??F)12/19/2022 6:18 PM EDTRespiratory Gwqr079712/19/2022 6:18 PM EDTOxygen Dpjsphpxps89%12/19/2022 6:18 PM EDTInhaled Oxygen Concentration--Mczkve382.6 kg (281 lb 6.4 oz)12/19/2022 6:18 PM EBUGjworm117 cm (5' 3 )06/01/2022 12:51 PM ESTBody Mass Index49.85 06/01/2022 12:51 PM EST Plan of Treatment Health MaintenanceDue DateLast DoneCommentsDiabetic Ophthalmology Exam1975 Depression Dhufjvpzo50/11/1988Tobacco Gjgmdbmzx22/11/1988Diabetic Foot Exam 1993Pap Smear1996Adult BMI Njkldjsho13/OVID-19 Vaccine ( season)/, 12/24/2020Influenza Vaccine /, 03/21/2016Statin Use: Yeicwvmm88/ DTaP,Tdap and Td Vaccines (2 - Td or Tdap) Medical Devices Not on file Insurance Care Teams Team MemberRelationshipSpecialtyStart DateEnd Date Services, [facility] [address] [place], [place] PCP - GeneralFamily Medicine10/09/18
--- OUTSIDE RECORDS SUMMARY | 2025-04-24 17:49 | XMS_ITS | Clinical Summary ---
Author Organization [facility] Healthcare Address [address] [place] [address] Care Team Providers Care Closing Supervisor Name Role Phone Funmi Kaplan MD Primary Care Provider [phone] Allergies No known active allergies Medications MedicationSigDispense [...] tablet 5Active Active Problems ProblemNoted DateDiagnosed DateCervical pnufjyljh16/26/2024ervical pain 11/21/2023GERD (gastroesophageal reflux disease)11/12/2023Hypertriglyceridemia 11/12/2023Vitamin D /17/2024Obesity due to excess fjrgmmji87/11/2018 Essential /11/2018 Overview (11/12/2023): Takes medications prescribed per Katt Angel or Dr. Joseph ArthritisDM (diabetes mellitus) Resolved Problems ProblemNoted DateDiagnosed DateResolved FhfyTkkysolrbrzp07/17/2024 Social History Tobacco UseTypesPacks/DayYears UsedDateSmoking Tobacco: FormerCigarettes Smokeless Tobacco: Former Tobacco Cessation:Counseling Given: Not Answered Alcohol UseStandard Drinks/WeekCommentsYes0 (1 standard drink = 0.6 oz pure alcohol)once a weekCommentsUnknownSex and Gender InformationValueDate RecordedSex Assigned at BirthNot on fileLegal DlsZvnxon64/09/2024 12:01 PM EDT Gender IdentityNot on fileSexual OrientationNot on file Last Filed Vital Signs Vital SignReadingTime TakenCommentsBlood Cdezdbqa418/7411/12/2023 1:06 PM EDT Pulse--Aksxqqwgtau39.2 ??C (97.1 ??F)11/12/2023 1:06 PM EDTRespiratory Rate-- Oxygen Saturation--Inhaled Oxygen Concentration--Atlvdm469 kg (282 lb)11/12/2023 1:06 PM PFNDenwpf177.3 cm (5' 3.5 )11/12/2023 1:06 PM EDTBody Mass Index49.17 11/12/2023 1:06 PM EDT Plan of Treatment Health MaintenanceDue DateLast DoneCommentsCT Otlsuakzbjrg85/11/1976Colonoscopy 1975Colorectal Cancer Ueccpjmxv59/11/1976FIT-DNA1975FIT1975 FOBT1975 5574Hcjxmjvozipom66/11/1976Diabetes: Urine Protein Rowpmnlot76/11/1995 Pneumococcal Vaccine: Pediatrics (0 to 5 Years) and At-Risk Patients (6 to 64 Years) (1 of 2 - PCV)1994Pap Smear1996Cervical Cancer Screening 2005HPV/Zmhrzu5206/07/20052220Nwmdhvdqa32/18/202203/, 04/30/2019COVID-19 Vaccine ( season)09/, 12/24/2020Influenza Vaccine (#1), 03/21/2016Diabetes: Hemoglobin A1C04/22/2025 01/20/2025, 4Diabetes: Retinopathy Jlhouhfoa81 Procedures Procedure NamePriorityDate/TimeAssociated DiagnosisCommentsHEMOGLOBIN O2GUgjmtxi 11/12/2023 1:42 PM EDT Encounter for wellness examination Type 2 diabetes mellitus without complication, without long-term current use of insulin ([facility]) DIABETIC RETINOPATHY SCREENING - OU - BOTH MJROSlszxei94/18/2024 3:49 PM EDTfrom Last 3 Months or Most Recently Relevant to Health Maintenance Results * (ABNORMAL) Hemoglobin A1c (11/12/2023 1:42 PM EDT)ComponentValueRef RangeTest MethodAnalysis TimePerformed AtPathologist SignatureHemoglobin A1C6.3(H)<5.7 % of total HgbQUESTComment: For someone without known diabetes, a hemoglobin A1c value between 5.7% and 6.4% is consistent with prediabetes and should be confirmed with a follow-up test. For someone with known diabetes, a value <7% indicates that their diabetes is well controlled. A1c targets should be individualized based on duration of diabetes, age, comorbid conditions, and other considerations. This assay result is consistent with an increased risk of diabetes. Currently, no consensus exists regarding use of hemoglobin A1c for diagnosis of diabetes for children. This test was performed on the Emily wero c503 platform. Effective 05/14/23, a change in test platforms from the [employer] Analyst to the Emily wero c503 may have shifted HbA1c results compared to historical results. Based on laboratory validation testing conducted at [facility], the Emily platform relative to the Rankin platform had an average increase in HbA1c value of < or = 0.3%. This difference is within accepted variability established by the National Glycohemoglobin Standardization Program. Note that not all individuals will have had a shift in their results and direct comparisons between historical and current results for testing conducted on different platforms is not recommended. Specimen (Source)Anatomical Location / LateralityCollection Method / Volume Collection TimeReceived TimeBloodVenous blood specimen / Dfglzrg1411/12/2023 1:42 PM EDT11/12/2023 1:43 PM EDT Narrative [facility] - 11/13/2023 8:24 AM EDT COLLECTION KIT GIVEN TO PATIENT. PATIENT ADVISED TO RETURN. Resulting Agency Comment Performing Organization Information ?Site ID: QPT ?Name: [facility] ?Address: [address] [place] [address], [address] [place] [id number] ?Director: Gerson See MD Authorizing ProviderResult TypeResult StatusChristy Catrachita Ash NPLAB BLOOD ORDERABLESFinal ResultPerforming OrganizationAddressCity/State/ZIP CodePhone Number [facility] * Diabetic Retinopathy Screening - OU - Both Eyes (09/13/2023 3:49 PM EDT) Anatomical RegionLateralityModalityHeadOther Narrative Authorizing ProviderResult TypeResult StatusJelaith Kaplan MDOPH PHOTOGRAPHY Final Result from Last 3 Months or Most Recently Relevant to Health Maintenance Care Teams Team MemberRelationshipSpecialtyStart DateEnd Date Funmi Kaplan MD [address] [place] [address] PCP - GeneralFamily Medicine11/26/23
--- OUTSIDE RECORDS SUMMARY | 2025-04-24 17:49 | XMS_ITS | Patient Health Record ---
Author Organization [facility] vices Address [address] [place] [address] [place], [place] [id number] Care Team Providers Care Instrument Lens Grinder Apprentice Name Role Phone Fiona Hwang Primary Care Provider Fay Whyte Unavailable [phone] Sofiya Doan Unavailable [phone] Sofiya Jacobson Unavailable [phone] Allergies No Known Allergies Results Component Value Reference Range Flag Notes CBC AND AUTOMATED DIFFERENTI AL Reviewed date:01/21/2025 08:20:37 AM Interpretation: Performing Lab: Notes/Report: WBC 7.4 4-11 x10E9/L RBC COUNT4.493.8-5.2 X10E12/JQXTUFMJRGC16.511.7-15.5 g/uGNLWGEAOBZZ19.835-47 % TXP6293-047 fLMCH27.827-34 xaSVBU50.032-36 g/dLRDW14.111.5-15 %PLATELET UKOTM857 150-450 X10E9/LMPV9.37-12 fLEOSINOPHILS RELATIVE PERCENT BY AUTOMATED COUNT4.7 BASOPHILS RELATIVE PERCENT BY AUTOMATED COUNT0.8NEUTROPHILS ABSOLUTE COUNT BY AUTOMATED COUNT4.81.5-6.6 10*3/uLLYMPHOCYTES ABSOLUTE COUNT (10*3/UL) BY AUTOMATED COUNT1.71.0-3.5 10*3/uLMONOCYTES ABSOLUTE COUNT (10*3/UL) BY AUTOMATED COUNT0.50.0-0.9 10*3/uLEOSINOPHILS ABSOLUTE COUNT (10*3/UL) BY AUTOMATED COUNT 0.40.0-0.4 10*3/uLCELLAVISION DIFFERENTIAL TYPEAUTOMATED DIFFERENTIAL PERFORMED AT [address],[place] [address] NEUTROPHILS RELATIVE PERCENT BY AUTOMATED COUNT65.0LYMPHOCYTES RELATIVE PERCENT BY AUTOMATED COUNT23.0MONOCYTES RELATIVE PERCENT BY AUTOMATED COUNT6.5BASOPHILS ABSOLUTE COUNT (10*3/UL) BY AUTOMATED COUNT0.10.0-0.2 10*3/uLCOMPREHENSIVE METABOLIC PANEL Reviewed date:01/21/2025 08:20:45 AM Interpretation: Performing Lab: Notes/Report: Reported eGFR is based on the CKD-EPI 2020 equation that does not use a race coefficient. EGFR not calculated due to patient's gender not being defined. PERFORMED AT [address],[place], [place] [address]UWYWHU 986840-421 mmol/LPOTASSIUM4.03.5-5.0 mmol/UJRXPZRHV89583-006 mmol/LCARBON HGRTHQC4113-35 mmol/LANION PDP87-41 mmol/LBLOOD UREA ZVAGYOXE873-35 mg/dL CREATININE0.670.40-1.00 mg/dLMETHOD TRACEABLE TO IDMS WSZOSKFJIXBSUIX47327-47 mg/dLHCALCIUM9.08.5-10.5 mg/dLTOTAL PROTEIN7.06.0-8.0 g/dLALBUMIN4.03.2-5.3 g/dL ALKALINE IQBNKGHAKSA5656-922 U/LAST27<=41 U/LBILIRUBIN,TOTAL0.80.3-1.2 mg/dLALT 12<=31 U/LEGFR (CKD-EPI) NON-RACE DEPENDENT>90>=60 ml/min/1.73sq.mHEMOGLOBIN A1C (GLYCO-HGB) Reviewed date:01/21/2025 08:38:32 AM Interpretation: Performing Lab: Notes/Report:HEMOGLOBIN A1C7.14.4-5.6 %H ADA Guidelines Result HgbA1c Normal : less than 5.7 % Prediabetes : 5.7 % to 6.4 % Diabetes : > 6.4 % Use with caution in patients with abnormal hemoglobin variants as the half-life of red blood cells and in vivo glycation rates are affected. EST. AVERAGE RHJVQXX267 PERFORMED AT [place] [address],[place] [address] LIPID PROFILE Reviewed date:01/21/2025 08:37:25 AM Interpretation: Performing Lab: Notes/Report:BNVBPNLZRRA421792-481 mg/uTBMVNHSXCWFPLV03798-110 mg/dLHHDL RSQAKBQBPKG84>39 mg/dLL HDL <40 mg/dL - High Risk HDL > or = 40mg/dL- Desirable HDL >60 mg/dL - Negative Risk LDL (CALC)77<130 mg/dL LDL <100 mg/dL - Desirable LDL >160 mg/dL - High Risk CHOLESTEROL:HDL3.81.0-5.0 NAVERY LOW XMMOBPEEEQO759-57 mg/dLH PERFORMED AT [place] [address],[place] [address] Reason For Referral Reason need for sleep study . May be at home or in house Diagnosis 1 Sleep apnea-like beh avior (G47.39) Referral Organization [facility] Referring Provider First Name Fay Referring Provider Last Name Isabell Referring Provider Speciality Family [facility] Referred Provider [facility] Referred Provider Specialty Sleep Medici ne General Notes Burton [place] 02/25 04:40:49 PM >1st attempt faxed to office for appt date. mary ellen Referral Priority Routine Referral Appointment Date 03/17/2025 Medications Medication SIG (Take, Route, Frequency, Duration) Notes Start Date End Date Status Magnesium 250 MG Tablet 1 tablet with a meal Ora lly Once a day ActivePotassium 99 MG Tablet1 tablet Orally Once a dayActiveGlucometerdaily SQ daily; Duration: 90 daysActiveBlood Gluc Meter Disp-Strips - Deviceas directed once a day; Duration: 07/26/2022ctiveLancet Device - Miscellaneousas directed daily; Duration: 07/26/2022ctiveamLODIPine Besylate 5 MG Tablet 1 tablet Orally Once a day; Duration: 90 daysActivehydroCHLOROthiazide 25 MG Tablet1 tablet in the morning Orally Once a day; Duration: 90 daysActive Atorvastatin Calcium 10 MG TabletTAKE 1 TABLET BY MOUTH DAILY Oral Once a day; Duration: 90 daysActiveMeloxicam 7.5 MG Tablet1 tablet Orally Once a day; Duration: 30 days5ActiveOmeprazole 20 MG Capsule Delayed Release1 capsule 30 minutes before morning meal Orally Once a day; Duration: 90 days ActivemetFORMIN HCl ER 500 MG Tablet Extended Release 24 Hour2 tablets Orally twice a day; Duration: 30 days5ActiveLoratadine 10 MG Tablet1 tablet Orally Once a dayActive Social History Tobacco Use: Social History Observation Description Date Details (start date - stop date) Former Smoker NA - NA Sex Assigned At : Social History Observation Description Sex Assigned At Female Social History Social DeterminantsSocial InfoQuestionAnswerNotesPRAPAREDate Completed/Updated: 02/24/2025patient entered dataWhat is your current housing situation?I have housingpatient entered dataAre you worried about losing your housing?NoWhat is the highest level of school that you have finished?High school diploma or GED 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 Stress is when someone feels tense, nervous, anxious, or can't sleep at nightbecause their mind is troubledNot at allIn the past year have you spent more than 2 nights in a row in a half-way, mcfp, senior care center, or juvenile correctional facility?Nopatient entered dataAre you a refugee?No patient entered dataWhat country are you from?[place] Statespatient entered dataDo you feel physically and emotionally safe where you currently live?Yes patient entered dataIn the past year, have you been afraid of your partner or ex-partner?Nopatient entered dataPRAPARE Score:5PCMH and UDS Demographics Social AttenexQuestionAnswerNotesPrimary Care Medical Home QuestionsDo you have any barriers to learning?Nonepatient entered dataWhat is your preferred method of learning?Doing or practicingpatient entered dataHow often do you need to have someone help you read instructions?Neverpatient entered dataHousehold:Social InfoQuestionAnswerNotesHouseholdNumber of adults in household:2Number of children in household:0Drugs/Alcohol/Caffeine:Social InfoQuestionAnswerNotes DrugsHave you used drugs other than those for medical reasons in the past 12 months?YesCAGE-AID Questionnaire (2018 Edition)Have you ever felt that you ought to cut down on your drinking or drug use?NoHave people annoyed you by criticizing your drinking or drug use?Nopatient entered dataHave you ever felt bad or guilty about your drinking or drug use?NoHave you ever had a drink or used drugs first thing in the morning to steady your nerves or to get rid of a hangover?Nopatient entered dataCAGE-AID Avjcs5QsfvxoshbeifwvDbribhtn CaffeineIntake:1-2 cups per dayTobacco Use:Social AttenexQuestionAnswerNotesTobacco Control (Standard)Tobacco use:Former smoker? How long has it been since you last smoked?Greater than 10 yearsTobacco Use/Smoking? How long has it been since you last smoked?5-10 yearspatient entered dataTobacco use:former smokerpatient entered dataAdditional DetailsCategorySocial InfoOptionsDetailsMiscellaneous: Occupation:works full-timeCulture/Language BarrierNoEducation LevelCollege Barriers to LearningNoneLearning PreferenceDoing or practicing, Watching a video How often do you need to have someone help you read instructionsNeverSafety Patient feels safe in relationshipsYesDrugs/Alcohol/Caffeine:Do you drink alcohol?rarely Problems Problem Type SNOMED Code ICD Code Onset Dates Problem Status W/U Status Risk Notes Problem Mixed hyperlipidemia (578158496) Mixed hy perlipidemia (E78.2) ActiveconfirmedProblemType II diabetes mellitus without complication (589032301) Type 2 diabetes mellitus without complication, without long-term current use of insulin (E11.9)ActiveconfirmedProblemSleep apnea (81687115)Sleep apnea-like behavior (G47.39)ActiveconfirmedProblemMorbid obesity (110586521)Obesity, morbid, BMI 50 or higher (E66.01)ActiveconfirmedProblemBody mass index 40+ - severely obese (402297271)BMI 45.0-49.9, adult (Z68.42)ActiveconfirmedProblem Elevated liver enzymes level (065806424)Elevated liver function tests (R79.89) ActiveconfirmedProblemPrimary hypertension (93301753)Primary hypertension (I10) ActiveconfirmedOn Amlodipine and HCTZ no new labsProblemGastroesophageal reflux disease (758730815)GERD (gastroesophageal reflux disease) (K21.9)Activeconfirmed ProblemCervical osteoarthritis (4101211184)Cervical osteoarthritis (M47.812) Activeconfirmed Comment:-hx of chronic neck pain -lateral movements more painful than extension and flexion -started on Baclofen as she has already been on it and helps with arthritis -f/u as needed, Vital Signs Heart Rate 67 /min 03/20/2025 Poatwoykarx43.2 degrees Vimldidbex19/06/2025Respiratory Rate16 /min03/02/2025 Height-cm160.02 cm03/20/20259371Mnsstdjz38 %03/02/2025lood pressure pihbzqtxt56 mm Hg03/20/2025Weight-kg127.91 kg03/20/20253815Dctlug34.00 in03/20/2025lood pressure fbpizskp852 mm Hg03/20/20250170Qikqtf105 lbs1MI49.95 kg/m203/20/2025 Encounters Encounter Location Date Provider Diagnosis [address] [id number] 01/19/2025 Fay Whyte Primary hypertensi on I10 ; Wellness examination Z00.00 ; Type 2 diabetes mellitus without complication, without long-term current use of insulin E11.9 ; Mixed hyperlipidemia E78.2 ; GERD (gastroesophageal reflux disease) K21.9 ; Dietary counseling Z71.3 ; Exercise counseling Z71.82 and Obesity, morbid, BMI 50 or higher E66.[address] [id number] 02/24/2025 Faytracy Whyte Type 2 diabetes me llitus without complication, without long-term current use of insulin E11.9 and Primary hypertension I10 [address] [id number] 03/02/2025 Fay Whyte Sleep apnea-like b ehavior G47.39 ; Encounter for screening for other disorder Z13.89 and Cervical osteoarthritis M47.812 [facility] [address] [place] [id number] 03/09/2025 [facility] BMI 45.0-49.9, justen lt Z68.42 ; Encounter for dental examination and cleaning with abnormal findings Z01.21 ; Caries of dentin K02.62 ; Necrosis of pulp K04.1 and Encounter for screening for dental disorders Z13.84 [facility] [address] [place] [id number] 03/20/2025 [facility] BMI 45.0-49.9, justen lt Z68.42 and Necrosis [...] Treatment Pending Test Test Name Order Date 2018 NOVEL CORONAVIRUS (COVID-19), KAYKAY L C - SEND ([id number]) 05/17/2020 Next Appt Details Provider Name:Fay dickerson, 05/25/2025 01:15:00 PM, [address], [place], [phone], Provider Name:Sofiya Felecia dickerson, 06/01/2025 01:45:00 PM, [address] [place] [address], [id number], Insurance Providers Payer Name Payer Address Payer Phone Subscriber Number Group Number Insured Name Patient Relationship to Insured Coverage Start Date Coverage End Date Daniel [facility] [address] [place] [address] [id number] DomitilaBrisaelf - patient is the [id number] 2025Sofia [facility] [address] [address] [place] [id number], CrystalSelf - patient is the [id number] 2024Medicaid [facility] [address] [place] [address] [id number], CrystalSelf - patient is the [id number] 2025DMedicaid [facility] after [place] [facility] EnvolvePO [address] [place], [place] [id number] Jena Ramesh - patient is the [id number] 2024 Medical (General) History Medical History History ICD Code Arthritis BP (high blood pressure)Cervical osteoarthritisGERD (gastroesophageal reflux disease)Surgical History Surgery Date(Month/Year) Tubal Ligation
== END 2025-04-24 17:59 | disposition home or self-care (01) ==
LOC: ER 17:46
PROVIDERS: Emergency Provider Emergency Medicine
DX: J06.9 Acute upper respiratory infection, unspecified (principal); R05.9 Cough, unspecified; R09.81 Nasal congestion
CPT/HCPCS: 99283